=== PATIENT | male | born 1950 | race Caucasian/White ===

== ENCOUNTER 2020-09-04 12:17 | Inpatient (IN) | payer MEDICARE, SELFPAY ==
[2020-09-04] VITALS (13 sets, daily range): BP systolic 122–143; BP diastolic 79–94; PULSE 69–88; RESP 18–24; TEMP 35.9–36.7; O2SAT 92–99; BMI 27.6
--- NOTE | ~2020-09-04 | XR_ITS ---
EXAMINATION: XR chest 2V EXAM DATE: 09/04/2020 12:48 INDICATION: Chest pain. History of heart stents. TECHNIQUE: Frontal and lateral projections of the chest obtained and reviewed. Comparison is made to prior examination from 07/09/2017. FINDINGS: Right coronary artery stent identified. Possible left-sided coronary stent as well. Cardio mediastinal silhouette is normal. No confluent consolidation, pneumothorax or pleural effusion suspec emil. Cervical fusion hardware. IMPRESSION: 1. No acute cardiopulmonary findings. Reviewed, dictated and finalized at location B.
--- NOTE | 2020-09-04 12:23 | ECG_ITS ---
Measurements Intervals [place] Rate: 90 P: 64 WV: 152 QRS: 69 QRSD: 100 T: 63 QT: 347 QTc: 426 Interpretive Statements SINUS RHYTHM DELAYED PRECORDIAL R/S TRANSITION NONSPECIFIC T-WAVE ABNORMALITY- INF/HIGH LAT LEADS BASELINE WANDER- V4 BORDERLINE ECG Electronically Signed On 09-04-2020 12:31:51 CDT by Uriel Cardona D.O.
[2020-09-04] MEDS: ASPIRIN 81 MG CHEWABLE TABLET 324 MG PO (12:37)
--- NOTE | 2020-09-04 12:39 | ED.CHESTPAIN ---
HPI - Chest Pain General Chief Complaint: Chest Pain Stated Complaint: cp Time Seen by Provider: 09/04/20 12:39 History of Present Illness HPI narrative: 70 yo male w/ h/o CAD s/p stent x 7 presents to the ED for chest pain. He reports that he has been having chest pain nearly every day for weeks. The pain is moderate pressure. It is associated with mild dyspnea. This is the same pain he had prior to getting stented in the past. It usually resolves with Nitroglycerine. He is scheduled for a cardiac cath on the , but his symptoms have become more frequent and he does not believe that he can wait. He currently has no pain. Related Data Home Medications Medication Instructions Recorded Confirmed aspirin [Adult Aspirin] 81 mg PO DAILY 09/04/20 09/04/20 atorvastatin 40 mg PO DAILY 09/04/20 09/04/20 bupropion HCl 150 mg PO DAILY 09/04/20 09/04/20 carvedilol 3.125 mg PO DAILY 09/04/20 09/04/20 escitalopram oxalate 20 mg PO DAILY 09/04/20 09/04/20 famotidine 40 mg PO DAILY 09/04/20 09/04/20 insulin degludec [Tresiba 200 unit SUBCUT DAILY 09/04/20 09/04/20 FlexTouch U-200] losartan 50 mg PO DAILY 09/04/20 09/04/20 metformin 1,000 mg PO DAILY 09/04/20 09/04/20 semaglutide [Ozempic] 0.25 mg SUBCUT 09/04/20 Allergies Allergy/AdvReac Type Severity Reaction Status Date / Time No Known Allergies Allergy Verified 09/04/20 12:29 Review of Systems Review of Systems: All systems reviewed & are unremarkable except as noted in HPI and below Constitutional: Constitutional: Denies chills, Denies fever(s) and Denies weakness Eyes: Eyes: Reports no additional eye complaints ENT: Reports system reviewed and no additional complaints, except as documented Cardiovascular: Cardiovascular: Reports chest pain and Reports radiating jaw, neck or arm pain Respiratory: Respiratory: Denies chest congestion, Denies cough and Reports dyspnea Gastrointestinal: Gastrointestinal: Denies abdominal pain, Denies nausea and Denies vomiting Genitourinary: Genitourinary: Reports no additional male genitourinary complaints Musculoskeletal: Musculoskeletal: Denies back pain Neurologic: Denies dizziness and Denies weakness [facility] Past Medical History Medical History (Updated 09/04/20 @ 13:59 by Nathan Preciado MD) CAD (coronary artery disease) Diabetes mellitus Surgical History Surgical History (Updated 09/04/20 @ 13:11 by Nathan Preciado MD) Stented coronary artery Family History Family History (Updated 04/01/15 @ 15:39 by DOCTOR UNKNOWN) Mother Family history of lung cancer Acute myocardial infarction Father Acute myocardial infarction Social History Social History Smoking status: Never smoker Alcohol intake: never Gender identity (if verbalized by the patient): Male Exam Const: General: healthy appearing, no acute distress and alert Orientation/consciousness: patient oriented x3 HENMT: Head: normal to inspection Neck: Neck: normal visual inspection and no lymphadenopathy Chest: Chest palpation & inspection: no tenderness Resp: Effort & Inspection: normal respiratory effort Auscultation: clear to auscultation bilaterally, no rales, no rhonchi and no wheezes Cardio: Jugular venous distension: no JVD Rate: regular rate Rhythm: regular rhythm Heart sounds: no murmurs GI: Inspection: non-distended GI Palp: Yes Soft to palpation and No Tenderness to palpation present (GI) Skin: General skin exam: normal color Neuro: General: patient oriented x3, moves all extremities, no focal motor deficits and CN's II-XI intact bilaterally Speech: normal speech Extrem: General: no edema Psych: Appearance: well kempt Affect: normal affect Course Vital Signs Vital signs: Vital Signs Temperature 36.7 C 09/04/20 12:20 Pulse Rate 88 09/04/20 12:20 Respiratory Rate 21 H 09/04/20 12:20 Blood Pressure 138/79 09/04/20 12:20 Pulse Oximetry 99 09/04/20 12:20 Temperature 36.7 C 05/0
[2020-09-04 12:44] LABS: Basophils Absolute Auto 0.1 K/mm3 (0.0-0.1); Basophils Percent Auto 0.5 % (0.2-1.2); Eosinophils Absolute Auto 0.7 K/mm3 (0-0.3); Eosinophils Percent Auto 5.7 % (0-4.4); Hematocrit 52.2 % (42.0-52.0); Hemoglobin 17.6 g/dL (14.0-18.0); Immature Granulocyte Absolute 0.08 K/mm3 (0.00-0.031); Immature Granulocyte Percent A 0.7 % (0-0.5); Lymphocytes Absolute Auto 3.49 K/mm3 (0.9-3.2); Lymphocytes Percent Auto 30.7 % (18.3-44.2); Mean Corpuscular HGB Conc 33.7 g/dl (32-36); Mean Corpuscular Hemoglobin 31.3 pg (26-34); Mean Corpuscular Volume 92.9 fl (80-100); Mean Platelet Volume 9.5 fl (7.4-10.4); Monocytes Absolute Auto 0.9 K/mm3 (0.1-0.6); Monocytes Percent Auto 8.2 % (2.6-8.5); Neutrophils Absolute Auto 6.1 K/mm3 (1.3-6.7); Neutrophils Percent Auto 54.2 % (45.5-73.1); Platelet Count Result 212 k/mm3 (150-375); Red Blood Count 5.62 M/mm3 (4.6-6.20); Red Cell Distribution Width 14.1 % (11.5-14.5); White Blood Count 11.4 K/mm3 (4.5-10.0)
[2020-09-04 12:49] LABS: Anion Gap 6 mmol/L (8-16); Blood Urea Nitrogen 14 mg/dL (9-20); Carbon Dioxide 34 mmol/L (22-30); Chloride 100 mmol/L (98-107); Estimated CRCL calculation 53 ml/min; Estimated Glomerular Filt Rate 60; Glucose 200 mg/dL (75-110); Potassium 4.7 mmol/L (3.4-5.0); Sodium 140 mmol/L (137-145)
[2020-09-04 12:55] LABS: INR 0.9; Partial Thromboplastin Time 24.9 SECONDS (22.3-36.8); Prothrombin Time 12.4 Seconds (11.1-14.7)
[2020-09-04 13:02] LABS: Troponin I 0.147 ng/mL (0.000-0.034)
[2020-09-04 15:33] LABS: Troponin I 0.154 ng/mL (0.000-0.034)
--- NOTE | 2020-09-04 15:42 | ADMGEN ---
This patient, Los Barlow, was admitted to IMU Room 214-01. Patient/family oriented to hospital policies and general routines including ID bracelet, bed and alarms, visiting hours, pain management, procedures, bathroom and other care routines, personal items, smoking policy, room service/diet, and visiting hours. Information on how to activate the Rapid Response Team has been discussed. Patient/Family are encouraged to report perceived risks to care and to ask questions if they do not understand what they are told or what they should do.
[2020-09-04 17:21] LABS: Glucose Point of Care 153 (65-105)
[2020-09-04] MEDS: HEPARIN SOD/D5W 100 UNITS/ML 25,000 UNITS/250 ML BAG 10 UNITS IV CONT (18:22)
[2020-09-04] MEDS: HEPARIN SODIUM 5,000 UNITS/ML VIAL 4000 UNITS IV PUSH (18:22)
--- NOTE | 2020-09-04 18:22 | PM.CNCAR ---
Assessment and Plan Assessment and plan (1) ACS (acute coronary syndrome): Code(s): I24.9 - Acute ischemic heart disease, unspecified Status: Acute Assessment and Plan: Onset of the patient's typical symptoms 3 weeks ago, progressive requiring multiple nitroglycerins during the day. Troponins are mildly elevated, but fortunately EKG does not show any acute ischemic changes. Discussed cardiac catheterization with the patient who is eager to proceed. In the meantime will continue aspirin and add heparin drip. (2) CAD (coronary artery disease): Code(s): I25.10 - Atherosclerotic heart disease of [place] coronary artery without angina pectoris Status: Acute Assessment and Plan: Long history of CAD with multiple PCIs in the past. (3) Hyperlipidemia: Code(s): E78.5 - Hyperlipidemia, unspecified Status: Acute Assessment and Plan: Taking atorvastatin 40 mg daily. Check lipids (4) Diabetes: Code(s): E11.9 - Type 2 diabetes mellitus without complications Status: Acute Assessment and Plan: Patient reports well controlled (5) Tobacco use: Code(s): Z72.0 - Tobacco use Status: Acute Assessment and Plan: Tobacco cessation strongly encouraged History of Present Illness History of Present Illness Consult date/time: 09/04/20 18:22 Consult reason: chest pain Reason For Visit: acute coronary syndrome Narrative: Mr. Los Barlow is a 68-year-old white male who was admitted with unstable angina whom we were asked to see by the hospitalist for advice and opinion. Mr. Barlow has had a long history of coronary disease with multiple coronary interventions dating back to 1992. He had not followed up with Dr. Schuster for several years but started having his typical symptoms about 3 weeks ago and was seen on 09/02/2020 with a cardiac catheterization scheduled for next week. However, he started having episodes of discomfort 5 to 6 times a day, relieved by nitroglycerin and 5/10 minutes, and thought he should just come in and get the catheterization done before things get any worse. His typical symptom is aching and soreness of the left shoulder; he told doctors Landen he was having some pressure-type chest discomfort but he denied any with me. This can occur at rest. He has been pain-free since admission. He does have an elevated troponin. The patient reports his blood pressure and diabetes are doing well as are his lipids. He smokes half a pack a day. 1993: Angioplasty of the mid Left anterior descending 12/1998: Stenting of the RCA ostium, OM2, and Left anterior descending 01/1999: stenting of the Left anterior descending and 2nd diagonal 10/1999: Rotational arthrectomy and stenting of the RCA ostium 01/2012: Angioplasty and stenting of the RCA from the ostium to the mid portion Review of Systems Constitutional: Constitutional: Reports no additional constitutional complaints Eyes: Eyes: Reports no additional eye complaints ENT: Denies epistaxis Cardiovascular: Cardiovascular: Reports chest pain, Denies diaphoresis, Denies pedal edema, Denies leg edema, Denies lightheadedness and Denies palpitations Respiratory: Respiratory: Denies dyspnea, Denies dyspnea on exertion and Reports wheezing Comments: Compliant with CPAP Gastrointestinal: Gastrointestinal: Denies abdominal pain and Denies hematochezia Genitourinary: Genitourinary: Denies dysuria Musculoskeletal: Musculoskeletal: Denies back pain Integumentary/Breasts: Skin/Breast: Reports rash (Rash on arms and legs, seen by Dermatology, topical steroids recommended) Neurologic: Reports system reviewed and no additional complaints, ex
[2020-09-04 19:08] LABS: Troponin I 0.161 ng/mL (0.000-0.034)
[2020-09-04 19:48] LABS: Glucose Point of Care 161 (65-105)
--- NOTE | 2020-09-04 20:02 | PM.IMHP ---
H&P: HPI History of Present Illness Date/Time: 09/04/20 20:02 this is a 70-year-old male patient who has a longstanding history of coronary artery disease. The patient has a total of 7 stents. He has been following the heart care group. The patient recently was seen by the Heart Care group on 09/02/2020. The patient had been having some chest pain on and off for many weeks. It was nitro responsive. Sometimes the patient takes up to 2-3 tablets of nitro a day. The patient stated he has been having chest pain every day with and without exertion. The patient did have a cardiac catheterization scheduled for next week. Per Dr. Neri 1992: Angioplasty of the mid Left anterior descending 12/1998: Stenting of the RCA ostium, OM2, and Left anterior descending 01/1999: stenting of the Left anterior descending and 2nd diagonal 10/1999: Rotational arthrectomy and stenting of the RCA ostium 01/2012: Angioplasty and stenting of the RCA from the ostium to the mid portion The patient currently is on heparin drip and is not having any chest discomfort at this time. He was also given aspirin in the emergency room. Of troponin 0.147. 3 hour troponin 0.154. 6 hour troponin 0.161. EKG was read by Dr. henao SINUS RHYTHM DELAYED PRECORDIAL R/S TRANSITION NONSPECIFIC T-WAVE ABNORMALITY- INF/HIGH LAT LEADS BASELINE WANDER- V4 BORDERLINE ECG Dr. pyle has been consulted and has already seen the patient. The plan is for cardiac catheterization for tomorrow. The patient is being admitted for inpatient services on the date of service 09/04/2020. Chief Complaint: Chest pain Review of Systems Review of Systems: All systems reviewed & are unremarkable except as noted in HPI and below Constitutional: Constitutional: Reports as per HPI and Reports no additional constitutional complaints Eyes: Eyes: Reports as per HPI and Reports no additional eye complaints ENT: Reports system reviewed and no additional complaints, except as documented and Reports Normal hearing present Cardiovascular: Cardiovascular: Reports no additional cardiovascular complaints Respiratory: Respiratory: Reports no additional respiratory complaints and Reports no additional respiratory complaints Gastrointestinal: Gastrointestinal: Reports as per HPI and Reports no additional gastrointestinal complaints Musculoskeletal: Musculoskeletal: Reports no additional musculoskeletal complaints Integumentary/Breasts: Skin/Breast: Reports system reviewed and no additional complaints, except as docu and Reports as per HPI Neurologic: Reports system reviewed and no additional complaints, except as documented, Reports as per HPI and Reports Normal hearing present Psychiatric: Psychiatric: Reports no additional psychiatric complaints and Reports as per HPI Endocrine: Endocrine: Reports no additional endocrine complaints Hematologic/Lymphatic: Hematologic/Lymphatic: Reports no additional hematologic/lymphatic complaints Allergic/Immunologic: Allergic/Immunologic: Reports no additional allergic/immunologic complaints [facility] Past Medical History Medical History CAD (coronary artery disease) 1992: Angioplasty of the mid Left anterior descending 12/1998: Stenting of the RCA ostium, OM2, and Left anterior descending 01/1999: stenting of the Left anterior descending and 2nd diagonal 10/1999: Rotational arthrectomy and stenting of the RCA ostium 01/2012: Angioplasty and stenting of the RCA from the ostium to the mid portion 08/2020: Depression Diabetes mellitus Eczema Bilateral arms SANJU (obstructive sleep apnea) Tobacco use Surgical History Surgical History (Updated 09/04/20 @ 20:17 by Marva Buchanan NP) H/O hernia repair Hx of cholecystectomy Stented coronary artery 1992: Angioplasty of the mid Left anterior descending 12/1998: Stenting of the RCA ostium, OM2, and Left anterior descending 01/1999: stenting of the Left anterior descending and 2nd diagonal 10/1999: Rotationa
[2020-09-04] MEDS: carvediloL 3.125 MG TABLET PO (21:03)
[2020-09-05] VITALS (31 sets, daily range): BP systolic 98–158; BP diastolic 65–88; PULSE 59–93; RESP 14–24; TEMP 35.6–36.6; O2SAT 90–98
[2020-09-05 01:00] LABS: Partial Thromboplastin Time 49.7 SECONDS (22.3-36.8)
[2020-09-05] MEDS: HEPARIN SODIUM 5,000 UNITS/ML VIAL 4000 UNITS IV PUSH (01:49)
[2020-09-05] MEDS: ESCITALOPRAM OXALATE 10 MG TABLET 20 MG PO (07:46)
[2020-09-05] MEDS: FAMOTIDINE 20 MG TABLET 40 MG PO (07:47)
[2020-09-05] MEDS: ATORVASTATIN 40 MG TABLET PO (07:47)
[2020-09-05] MEDS: LOSARTAN POTASSIUM 50 MG TABLET PO (07:47)
[2020-09-05] MEDS: buPROPion HCL XL (24 HR) 150 MG TABCR PO (07:47)
[2020-09-05] MEDS: carvediloL 3.125 MG TABLET PO ×2 (07:48→22:50)
[2020-09-05 08:12] LABS: Basophils Absolute Auto 0.1 K/mm3 (0.0-0.1); Basophils Percent Auto 0.5 % (0.2-1.2); Eosinophils Absolute Auto 0.5 K/mm3 (0-0.3); Eosinophils Percent Auto 4.5 % (0-4.4); Hematocrit 49.8 % (42.0-52.0); Immature Granulocyte Absolute 0.05 K/mm3 (0.00-0.031); Immature Granulocyte Percent A 0.4 % (0-0.5); Mean Corpuscular HGB Conc 34.1 g/dl (32-36); Mean Corpuscular Volume 90.7 fl (80-100); Mean Platelet Volume 9.4 fl (7.4-10.4); Monocytes Absolute Auto 0.9 K/mm3 (0.1-0.6); Monocytes Percent Auto 7.8 % (2.6-8.5); Neutrophils Absolute Auto 6.4 K/mm3 (1.3-6.7); Neutrophils Percent Auto 53.8 % (45.5-73.1); Platelet Count Result 184 k/mm3 (150-375); Red Blood Count 5.49 M/mm3 (4.6-6.20); White Blood Count 11.8 K/mm3 (4.5-10.0)
[2020-09-05 08:39] LABS: Alanine Aminotransferase 39 U/L (4-50); Albumin Level 4.2 g/dL (3.5-5.1); Alkaline Phosphatase 79 U/L (38-126); Anion Gap 5 mmol/L (8-16); Aspartate Amino Transferase 36 U/L (17-59); Bilirubin,Total 0.4 mg/dL (0.2-1.3); Blood Urea Nitrogen 15 mg/dL (9-20); Calcium 9.3 mg/dL (8.4-10.2); Carbon Dioxide 32 mmol/L (22-30); Chloride 103 mmol/L (98-107); Cholesterol 142 mg/dL (0-200); Estimated CRCL calculation 57 ml/min; Estimated Glomerular Filt Rate > 60; Glucose 111 mg/dL (75-110); HDL Direct 37 mg/dL; Potassium 4.3 mmol/L (3.4-5.0); Sodium 140 mmol/L (137-145); Triglycerides 174 mg/dL (<150)
[2020-09-05 08:41] LABS: Hemoglobin A1C 8.3 % (<5.7)
[2020-09-05 08:41] LABS: Glucose Point of Care 105 (65-105)
--- NOTE | 2020-09-05 08:41 | WPDMODSED ---
Moderate Sedation Note-Pt Data Patient Data Diagnosis: Symptoms compatible with exertional angina recent onset history of coronary disease with multiple interventions in all of the coronary arteries previously, none recent Present Complaint: exertional chest pain Procedure to be performed/Plan: left heart catheterization Allergies Allergy/AdvReac Type Severity Reaction Status Date / Time No Known Allergies Allergy Verified 09/04/20 12:29 Home Medications Medication Instructions Recorded Confirmed Type aspirin [Adult Aspirin] 81 mg PO DAILY 09/04/20 09/04/20 History atorvastatin 40 mg PO DAILY 09/04/20 09/04/20 History bupropion HCl 150 mg PO DAILY 09/04/20 09/04/20 History carvedilol 3.125 mg PO BID 09/04/20 09/04/20 History escitalopram oxalate 20 mg PO DAILY 09/04/20 09/04/20 History famotidine 40 mg PO DAILY 09/04/20 09/04/20 History insulin degludec [Tresiba 200 unit SUBCUT DAILY 09/04/20 09/04/20 History FlexTouch U-200] losartan 50 mg PO DAILY 09/04/20 09/04/20 History metformin 1,000 mg PO DAILY 09/04/20 09/04/20 History semaglutide [Ozempic] 0.5 mg SUBCUT WEEKLY 09/04/20 09/04/20 History Current Medications: Active Medications Atorvastatin Calcium (Atorvastatin 40 Mg Tablet) 40 mg PO DAILY [facility] Last Admin: 09/05/20 07:47 Dose: 40 mg Documented by: Bupropion HCl (Bupropion Hcl Xl (24 Hr) 150 Mg Tabcr) 150 mg PO DAILY [facility] Last Admin: 09/05/20 07:47 Dose: 150 mg Documented by: Carvedilol (Carvedilol 3.125 Mg Tablet) 3.125 mg PO Q12HR [facility] Last Admin: 09/05/20 07:48 Dose: 3.125 mg Documented by: Dextrose (Dextrose 50% 25 Gm/50 Ml Syringe) 12.5 gm IV PUSH PRN PRN; Protocol PRN Reason: Hypoglycemia Escitalopram Oxalate (Escitalopram Oxalate 10 Mg Tablet) 20 mg PO DAILY [facility] Last Admin: 09/05/20 07:46 Dose: 20 mg Documented by: Famotidine (Famotidine 20 Mg Tablet) 40 mg PO DAILY [facility] Last Admin: 09/05/20 07:47 Dose: 40 mg Documented by: Glucagon (Glucagon For Inj 1 Mg Vial) 1 mg IM PRN PRN; Protocol PRN Reason: Hypoglycemia Glucose (Glucose Oral Gel 15 Gm Of Glucse In 37.5 Gm Tube) 15 gm PO PRN PRN; Protocol PRN Reason: Hypoglycemia Heparin Sodium (Porcine) (Heparin Sodium 5,000 Units/Ml Vial) 4,000 units IV PUSH PRN PRN PRN Reason: aPTT less than 55 seconds Last Admin: 09/05/20 01:49 Dose: 4,000 units Documented by: Heparin Sodium (Porcine) (Heparin Sodium 5,000 Units/Ml Vial) 3,500 units IV PUSH PRN PRN PRN Reason: aPTT 55 - 70 seconds Heparin Sodium/Dextrose (Heparin Sodium/D5w 100 Units/Ml) 25,000 units in 250 mls @ 14 mls/hr IV CONT .[id number] [facility]; Protocol Last Titration: 09/05/20 08:30 Dose: 1,400 units/hr, 14 mls/hr Documented by: Sodium Chloride (Normal Saline Iv) 500 mls @ 100 mls/hr IV CONT .Q5H ELIEZER Dextrose (Dextrose 5% 1,000 Ml) 1,000 mls @ 100 mls/hr IVPB PRN PRN; Protocol PRN Reason: Hypoglycemia Insulin Aspart (Insulin Aspart (*Bkc) 100 Units/Ml) 2 - 5 units SUB-Q TIDWM [facility]; Protocol Last Admin: 09/05/20 07:23 Dose: Not Given Documented by: Losartan Potassium (Losartan Potassium 50 Mg Tablet) 50 mg PO DAILY [facility] Last Admin: 09/05/20 07:47 Dose: 50 mg Documented by: Nitroglycerin (Nitroglycerin Sl 0.4 Mg Tablet) 0.4 mg SUBLINGUAL Q5MIN PRN PRN Reason: Chest Pain Nitroglycerin (Nitroglycerin Sl 0.4 Mg Tablet) 0.4 mg SUBLINGUAL ONCE PRN PRN Reason: Chest Pain Ondansetron HCl (Ondansetron Inj 4 Mg/2 Ml Vial) 4 mg IV PUSH Q4H PRN PRN Reason: Nausea Sedation/Anesthesia: No previous sedation/anesthesia problems (including family history). [facility] Past Medical History Medical History CAD (coronary artery disease) 1993: Angioplasty of the mid Left anterior descending 12/1998: Stenting of the RCA ostium, OM2, and Left anterior descending 01/1999: stenting of the Left anterior descending and 2nd diagonal 10/1999: Rotational arthrectomy and stenting of the RCA ostium 01/2012: Angioplasty and stenting of the RCA from the ostium to the mid portion
[2020-09-05 08:50] LABS: LDL Cholesterol Direct 75 mg/dL
--- NOTE | 2020-09-05 09:26 | WPDCARDPROC ---
Cardiac Cath Procedure Note Date of procedure:: 09/05/20 Performing physician:: Sotero Schuster MD Indication:: recurrent exertional angina Brief clinical history:: 70-year-old man known to have multivessel coronary disease with interventions in all of his coronary arteries dating back to 1992 Procedure Procedure performed:: left heart catheterization Sedation/Medication given:: fentanyl 50 mg Versed 2 mg case start time 8:55 a.m. case end time 9:19 a.m. sedation provided by Dottie Baumann RN, trained observer Access site:: right femoral artery Estimated blood loss:: 15-20 cc Procedure note:: patient was brought to the cardiac catheterization lab in the postabsorptive state where the right femoral triangle was prepared and draped in the usual fashion. Anesthesia was provided with 1% lidocaine infiltrated locally. Using the modified Seldinger technique femoral artery was punctured and a 5 [place] vascular sheath was placed. The sheath guidewire would not advance into the abdominal aorta there was atherosclerotic lesion with some calcification in the iliac vessel. For this reason I placed a [place] wire into the vessel and at access the descending aorta that over the wooly wire the sheath was exchanged for a long 5 Malaysian 23 cm sheath. Following this a 5 Malaysian angled pigtail catheter was used to measure left-sided hemodynamics and injected LV g in the SÁNCHEZ projection. A 5 [place] FL4 catheter was used to engage inject the left coronary artery. The I could not satisfactorily engage the right coronary ostium using the JR4 catheter I used a WRP 5 Malaysian catheter for this. Following this the cineangiograms were reviewed and the case was terminated. The sheath will be removed in the holding area and patient will be recovered following angiography. He left the dental laboratory worker with no evidence of any procedural complications and no evidence of a groin hematoma. Findings:: Hemodynamics: Central pressure 134 over 70 left ventricle 1343 and diastolic pressure 22 there is no gradient pullback across the aortic valve. Ventricle: The LV is mildly enlarged the inferior wall is akinetic the anterior wall is mildly hypodynamic the global ejection fraction visually estimated to be about 45%. Left main coronary artery is nicely patent the left anterior descending is a medium caliber artery extending down to around the apex. There are several previous stents in the proximal to mid LAD. In the mid LAD and there appeared to be at least 2 layers of prior stent material. In this segment there is 80% stenosis relatively long tubular lesion in the mid LAD. A 2nd diagonal takes off in this location has a subtotal proximal occlusion which is jailed by these layers of stent material. There is collateral filling from the apical portion of the LAD over to a distal RCA vessel. Circumflex is a medium caliber artery with mild ostial disease and mild ostial disease of 1st OM branch appears to have no more than about 40-50% stenosis in this segment. There was ROSANNE 3 flow into the 1st OM branch and there is a visible stent prior to a 2nd OM branch at the terminal margin of the stent the vessel is 99% occluded with very slow flow into the 2nd OM branch which appears to be a very small vessel. Right coronary artery is dominant to the posterior circulation. There are at least 2 layers of proximal stent material visible as well as another layer of stent trivial in the midportion of the vessel. The proximal segment has a long severe 99% stenosis in the 1st portion of the vessel. There is 80-90% stenosis in the midportion of the vessel. The RCA appears to bifurcate early between the 2nd and 3rd portions of the vessel the RPDA takes off in a stented area appears to have reasonably good flow but is originating in an area that is jailed. RPL branches are several and are small to medium in size and free of significant lesions. Conclusion:: 1. Severe three-vessel
[2020-09-05] MEDS: SODIUM CHLORIDE 0.9% IV 1,000 ML 125 ML IV CONT (10:20)
--- NOTE | 2020-09-05 10:20 | SUR.PHASEII ---
ACT RESULT 120. WILL PULL SHEATH.
--- NOTE | 2020-09-05 12:00 | SUR.PHASEII ---
REPORT CALLED TO REX CONCEPCION IN IMU.
--- NOTE | 2020-09-05 12:30 | SUR.PHASEII ---
RETURNED TO IMU 214 VIA BED ON TELE MONITOR AT THIS TIME. VOICES NO C/O. R. GROIN SITE SOFT, NONTENDER. NO BLEEDING OR HEMATOMA NOTED. DRESSING C/D/I. VOICES NO C/O. NO DISTRESS NOTED. IVF'S RUNNING ORDERED.
[2020-09-05 13:08] LABS: Glucose Point of Care 96 (65-105)
[2020-09-05 13:30] LABS: Activated Clotting Time 120 sec (74-137)
--- NOTE | 2020-09-05 13:33 | PM.DS ---
DS: Admitting Diagnosis Admitting Diagnosis Admitting Diagnosis: (1) ACS (acute coronary syndrome): Code(s): I24.9 - Acute ischemic heart disease, unspecified Status: Acute Assessment and Plan: (2) Diabetes: Code(s): E11.9 - Type 2 diabetes mellitus without complications Status: Acute Assessment and Plan: Accu-Cheks AC and HS with sliding scale. Hold metformin since he is going to get a cardiac catheterization. (3) Hyperlipidemia: Code(s): E78.5 - Hyperlipidemia, unspecified Status: Acute Assessment and Plan: Continue with atorvastatin. (4) Tobacco use: Code(s): Z72.0 - Tobacco use Status: Acute Assessment and Plan: Patient has been counseled approximately 5 minutes on smoking cessation and he did receive smoking cessation material. (5) Depression: Code(s): F32.9 - Major depressive disorder, single episode, unspecified Status: Chronic Assessment and Plan: Continue with Wellbutrin and Lexapro. DS: Discharge Diagnosis Discharge Diagnosis (1) Tobacco use: Code(s): Z72.0 - Tobacco use Status: Acute (2) Hyperlipidemia: Code(s): E78.5 - Hyperlipidemia, unspecified Status: Acute (3) Diabetes: Code(s): E11.9 - Type 2 diabetes mellitus without complications Status: Acute (4) CAD (coronary artery disease): Code(s): I25.10 - Atherosclerotic heart disease of [place] coronary artery without angina pectoris Status: Acute (5) ACS (acute coronary syndrome): Code(s): I24.9 - Acute ischemic heart disease, unspecified Status: Acute (6) Coronary artery disease with cardiac symptoms and history of coronary revascularization: Code(s): I25.10 - Atherosclerotic heart disease of [place] coronary artery without angina pectoris; R09.89 - Other specified symptoms and signs involving the circulatory and respiratory systems; Z98.61 - Coronary angioplasty status Status: Acute (7) Depression: Code(s): F32.9 - Major depressive disorder, single episode, unspecified Status: Chronic (8) Eczema: Code(s): L30.9 - Dermatitis, unspecified Status: Chronic DS: Summary Hospital Course Reason for hospitalization: Chest pain Hospital Course: 70-year-old male diabetic smoker with history of [place] and PCI w multiple stents presents to the emergency room with worsening angina. patient was admitted and placed on heparin ip. Pain was controlled. He was taken to cardiac catheterization and found to have widespread multivessel disease not amenable to further percutaneous intervention. Recommendation was made for him to be transferred to [facility] for CABG. patient is discharged in stable condition Time spent discussing smoking cessation with patient: 3 to 10 minutes Status at Discharge Functional status at discharge: independent ambulation Time Spent with Patient Time attestation: Total time spent providing and/or coordinating discharge services: Time spent: Greater than 30 minutes Exam Narrative: Exam Narrative: GEN: NAD, AAOx3, cooperative HEENT: NCAT, MMM, EOMI Neck: no JVD Heart: S1S2 RRR Lungs: CTA B/l Abd: soft, NT, ND, bowel sounds normoactive Ext: moves all, no cyanosis, no clubbing, no edema, rt groin site soft without ecchymosis or abnormal findings Neuro: AAOx3 CN intact no gross focal deficits Psych: mood and affect congruent DS: Data Data Completed and Pending Labs on day of discharge: Labs from last 24 hours 09/05/20 09/05/20 09/05/20 12:44 10:18 08:05 WBC RBC Hgb Hct MCV MCH MCHC RDW Plt Count MPV Immature Gran % (Auto) Neut % (Auto) Lymph % (Auto) Cassia % (Auto) Eos % (Auto) Baso % (Auto) Lymph # (Auto) Cassia # (Auto) Eos # (Auto) Baso # (Auto) Abs Immat Gran (auto) Absolute Neuts (auto) Absolute Nucleated RBC Nucleated RBC % APTT 105.0 H Activ C
--- NOTE | 2020-09-05 14:12 | PM.TDS ---
Transfer Discharge Sum: Prov Provider Date of admission: 09/04/20 13:25 Primary care physician: Sergey Helms, DO Admitting clinician: Amanda Strickland MD Consults: 09/04/20 13:28 Consult to Physician Routine Comment: Consulting Provider: Belle Bermudez Reason for consultation: Acute coronary syndrome Has provider been notified: Yes DS: Admitting Diagnosis Admitting Diagnosis Admitting Diagnosis: Admitting Diagnosis: (1) ACS (acute coronary syndrome): Code(s): I24.9 - Acute ischemic heart disease, unspecified Status: Acute Assessment and Plan: (2) Diabetes: Code(s): E11.9 - Type 2 diabetes mellitus without complications Status: Acute Assessment and Plan: Accu-Cheks AC and HS with sliding scale. Hold metformin since he is going to get a cardiac catheterization. (3) Hyperlipidemia: Code(s): E78.5 - Hyperlipidemia, unspecified Status: Acute Assessment and Plan: Continue with atorvastatin. (4) Tobacco use: Code(s): Z72.0 - Tobacco use Status: Acute Assessment and Plan: Patient has been counseled approximately 5 minutes on smoking cessation and he did receive smoking cessation material. (5) Depression: Code(s): F32.9 - Major depressive disorder, single episode, unspecified Status: Chronic Assessment and Plan: Continue with Wellbutrin and Lexapro. DS: Discharge Diagnosis Discharge Diagnosis (1) Coronary artery disease with cardiac symptoms and history of coronary revascularization: Code(s): I25.10 - Atherosclerotic heart disease of [place] coronary artery without angina pectoris; R09.89 - Other specified symptoms and signs involving the circulatory and respiratory systems; Z98.61 - Coronary angioplasty status Status: Acute (2) Depression: Code(s): F32.9 - Major depressive disorder, single episode, unspecified Status: Chronic (3) Eczema: Code(s): L30.9 - Dermatitis, unspecified Status: Chronic (4) Tobacco use: Code(s): Z72.0 - Tobacco use Status: Acute (5) Hyperlipidemia: Code(s): E78.5 - Hyperlipidemia, unspecified Status: Acute (6) Diabetes: Code(s): E11.9 - Type 2 diabetes mellitus without complications Status: Acute (7) CAD (coronary artery disease): Code(s): I25.10 - Atherosclerotic heart disease of [place] coronary artery without angina pectoris Status: Acute (8) ACS (acute coronary syndrome): Code(s): I24.9 - Acute ischemic heart disease, unspecified Status: Acute Transfer Discharge Sum: Med Medications Active and Home Medications: Home Medications aspirin [Adult Aspirin] 81 mg PO DAILY 09/04/20 [History Confirmed 09/04/20] atorvastatin 40 mg PO DAILY 09/04/20 [History Confirmed 09/04/20] bupropion HCl 150 mg PO DAILY 09/04/20 [History Confirmed 09/04/20] carvedilol 3.125 mg PO BID 09/04/20 [History Confirmed 09/04/20] escitalopram oxalate 20 mg PO DAILY 09/04/20 [History Confirmed 09/04/20] famotidine 40 mg PO DAILY 09/04/20 [History Confirmed 09/04/20] insulin degludec [Tresiba FlexTouch U-200] 200 unit SUBCUT DAILY 09/04/20 [History Confirmed 09/04/20] losartan 50 mg PO DAILY 09/04/20 [History Confirmed 09/04/20] metformin 1,000 mg PO DAILY 09/04/20 [History Confirmed 09/04/20] semaglutide [Ozempic] 0.5 mg SUBCUT WEEKLY 09/04/20 [History Confirmed 09/04/20] Active Medications Atorvastatin Calcium (Atorvastatin 40 Mg Tablet) 40 mg PO DAILY [facility] Last Admin: 09/05/20 07:47 Dose: 40 mg Documented by: Bupropion HCl (Bupropion Hcl Xl (24 Hr) 150 Mg Tabcr) 150 mg PO DAILY [facility] Last Admin: 09/05/20 07:47 Dose: 150 mg Documented by: Carvedilol (Carvedilol 3.125 Mg Tablet) 3.125 mg PO Q12HR [facility] Last Admin: 09/05/20 07:48 Dose: 3.125 mg Documented by: Dextrose (Dextrose 50% 25 Gm/50 Ml Syringe) 12.5 gm IV PUSH PRN PRN; Protocol PRN Reason: Hypoglycemia Escitalopram Oxalate (Escitalo
--- NOTE | 2020-09-05 14:28 | PCCPR ---
[facility] flyer was given to patient.
[2020-09-05 18:00] LABS: Glucose Point of Care 180 (65-105)
--- NOTE | 2020-09-05 19:20 | PC.NURSE ---
Dr. Strickland notified that patient stated he did not want to be intubated. (DNI) Dr. Strickland verbalized that since the patient is being transferred to [facility] that code status will remain the same at this time. No further orders.
--- NOTE | 2020-09-05 19:39 | PC.NURSE ---
Call placed out to Dr. Strickland @[phone] to sign transfer document or give verbal order via phone. No answer. Awaiting call back.
[2020-09-05 21:35] LABS: Glucose Point of Care 193 (65-105)
[2020-09-06] VITALS: BP 113/59; PULSE 62; PULSE 67; RESP 16; TEMP 36.2; O2SAT 94
[2020-09-06 01:00] VITALS: PULSE 61
== END 2020-09-06 02:41 | disposition short-term general hospital (02) | DRG 287 ==
LOC: ANHED 13:59 → ANHIMU 14:30
PROVIDERS: Internal Medicine Cardiovascular Disease; Nurse Practitioner; Specialist; Admitting Provider Hospitalist; Emergency Provider Emergency Medicine; PCP Student in an Organized Health Care Education/Training Program; Visit Provider Hospitalist
PROC: 4A023N7 Measurement of Cardiac Sampling and Pressure, Left Heart, Percutaneous Approach (ICD-10-PCS; CPT 93452; principal; 2020-09-05 08:30)
DX: I25.119 Atherosclerotic heart disease of native coronary artery with unspecified angina pectoris (principal); I24.9 Acute ischemic heart disease, unspecified; F32.9 Major depressive disorder, single episode, unspecified; L30.9 Dermatitis, unspecified; F17.210 Nicotine dependence, cigarettes, uncomplicated; E78.5 Hyperlipidemia, unspecified; E11.9 Type 2 diabetes mellitus without complications; G47.33 Obstructive sleep apnea (adult) (pediatric); Z95.5 Presence of coronary angioplasty implant and graft; Z79.4 Long term (current) use of insulin; Z79.82 Long term (current) use of aspirin; Z79.899 Other long term (current) drug therapy
CPT/HCPCS: 36415; 71046; 80048; 80053; 80061; 82948; 83036; 84484; 85025; 85610; 85730; 93005; 93458; 99285; A9270; C1769; C1887; C1894; J0461; J1644; J2250; J3010; J7030; J7040

== ENCOUNTER 2022-07-27 09:37 | Outpatient (CLI) | payer MEDICARE, SELFPAY ==
--- NOTE | ~2022-07-27 | CT_ITS ---
CT Scan of the Chest without Contrast: Clinical Indication: Current smoker, lung cancer screening Technique: Contiguous sections were acquired throughout the chest without intravenous contrast. Dose reduction technique was used on this scan by utilizing automated exposure control and iterative recon struction technique. The dose-length product (DLP) was 142.93 mGy-cm. COMPARISON: 08/10/2018 Findings: There is no evidence of any significant mediastinal, hilar or axillary lymphadenopathy. There are ath erosclerotic calcifications of the aorta. Evidence of prior presumed CABG. There is no evidence of pleural or pericardial effusion. There is moderate emphysema. Several scattered subcentimeter pulmonary nodules are essentially stable from prior exam. Images through the upper abdomen reveal no abnormalities. Impression: Lung-RADS 2: Benign appearance. 12 month follow-up screening CT advised. Reviewed, dictated and finalized at [facility]. Impression: Lung-RADS 2: Benign appearance. 12 month follow-up screening CT advised.
== END 2022-07-27 09:38 | disposition home or self-care (01) ==
PROVIDERS: PCP Internal Medicine; Visit Provider Internal Medicine
DX: Z12.2 Encounter for screening for malignant neoplasm of respiratory organs (principal); F17.210 Nicotine dependence, cigarettes, uncomplicated
CPT/HCPCS: 71271

== ENCOUNTER 2022-08-05 01:13 | Day surgery (SDC) | payer MEDICARE, SELFPAY ==
[2022-07-23 10:09] VITALS: BMI 25.9
[2022-08-05 07:40] VITALS: BP 110/67; PULSE 92; RESP 18; TEMP 35.8; O2SAT 94; BMI 25.6
[2022-08-05] MEDS: LACTATED RINGERS 1,000 ML 150 ML IV CONT (07:58)
[2022-08-05 08:03] LABS: Glucose Point of Care 99 mg/dl (65-105)
--- NOTE | 2022-08-05 08:21 | PM.HPGS ---
History of Present Illness History of Present Illness Consent: Risks, benefits, and alternatives have been discussed and questions answered. Patient agrees to proceed with procedure. Chief complaint: Hx of colon polyps Narrative: [place] Barlow is a 72 year old male Presents for screening colonoscopy. Patient's current weight appetite and bowel movements are normal. Patient denies abdominal pain. He has had no bleeding. Patient does have a prior history of colon polyps on several previous colonoscopies. Most recent colonoscopy 2015. Patient presents today for neoplasia screening. Patient reports his has significant medical illnesses these include recent diagnosis of lung cancer. Review of Systems Review of Systems: Review of systems noncontributory. [facility] Past Medical History Medical History (Updated 08/05/22 @ 08:22 by Ortega Mitchell MD) BMI 25.0-25.9,adult Brain aneurysm CAD (coronary artery disease) 1993: Angioplasty of the mid Left anterior descending 12/1998: Stenting of the RCA ostium, OM2, and Left anterior descending 01/1999: stenting of the Left anterior descending and 2nd diagonal 10/1999: Rotational arthrectomy and stenting of the RCA ostium 01/2012: Angioplasty and stenting of the RCA from the ostium to the mid portion 08/2020: COPD (chronic obstructive pulmonary disease) Depression Diabetes mellitus Diarrhea Eczema Bilateral arms Encounter to establish care Epigastric pain Follow up Hx of colonic polyps Hx of traumatic brain injury Impaired functional mobility, balance, gait, and endurance Orthostatic hypotension SANJU (obstructive sleep apnea) Rhinorrhea Skin lesion Tobacco use Vitamin B deficiency Vitamin B12 deficiency Surgical History Surgical History H/O hernia repair Hx of cholecystectomy Stented coronary artery 1993: Angioplasty of the mid Left anterior descending 12/1998: Stenting of the RCA ostium, OM2, and Left anterior descending 01/1999: stenting of the Left anterior descending and 2nd diagonal 10/1999: Rotational arthrectomy and stenting of the RCA ostium 01/2012: Angioplasty and stenting of the RCA from the ostium to the mid portion Family History Family History Mother Family history of lung cancer Acute myocardial infarction Cancer of cancer age 76 Father Acute myocardial infarction Age 54 Sibling Cancer Social History Social History Social History: over 50 years. 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 The patient still continues to smoke a half a pack of cigarettes a day. His 2 daughters. His is the durable power naphthalene still operator for healthcare. And he is a full code. He denies any alcohol marijuana or illicit drugs. Smoking packs per day: 0.5 Smoking cigarettes per day: 10.0 Years smoked: 50 Smoking pack-years: 25.00 Smoking status: Current every day smoker Tobacco type: cigarettes Alcohol intake: never Substance use: never Substance use type: does not use Living arrangements: with family Gender identity (if verbalized by the patient): Male Spiritual care concerns: No Meds Home Medications and Allergies Home Medications Medication Instructions Recorded Confirmed Type aspirin 81 mg tablet 81 mg PO DAILY 09/04/20 08/05/22 History atorvastatin 40 mg tablet 40 mg PO DAILY 09/04/20 08/05/22 History carvedilol 3.125 mg tablet 3.125 mg PO BID 09/04/20 08/05/22 History losartan 50 mg tablet 50 mg PO DAILY 09/04/20 08/05/22 History semaglutide 0.25 mg or 0.5 mg (2 0.5 mg subcut WEEKLY 09/04/20 08/05/22 History mg/1.5 mL) subcutaneous pen injector (Ozempic) nitroglycerin 0.4 mg sublingual 0.4 mg sublingual Q5MIN PRN Chest 09/05/20 08/05/22 Rx tablet (Nitrostat) Pain #7 tabs cholecalciferol (v
--- NOTE | 2022-08-05 08:24 | WPDANESEPPF ---
Anes - Initial Pre Proc Eval Procedure: Operation Date: 08/05/22 09:00 Proposed Procedures p Screening Colonoscopy - Ortega Mitchell MD Date/Time: 08/05/22 08:24 Surgeon: Ortega Mitchell MD Pre Op Diagnosis: Hx of colon polyps Patient Data Age: 72 Gender: M Height: 1.78 m Weight: 81.1 kg Last Vital Signs Temp 96.4 F L 08/05/22 07:40 Pulse 92 08/05/22 07:40 Resp 18 08/05/22 07:40 BP 110/67 08/05/22 07:40 Pulse Ox 94 08/05/22 07:40 O2 Del Method Room Air 08/05/22 07:40 Allergies Allergy/AdvReac Type Severity Reaction Status Date / Time No Known Allergies Allergy Verified 08/05/22 07:47 Home Medications Medication Instructions Recorded Confirmed Type aspirin 81 mg tablet 81 mg PO DAILY 09/04/20 08/05/22 History atorvastatin 40 mg tablet 40 mg PO DAILY 09/04/20 08/05/22 History carvedilol 3.125 mg tablet 3.125 mg PO BID 09/04/20 08/05/22 History losartan 50 mg tablet 50 mg PO DAILY 09/04/20 08/05/22 History semaglutide 0.25 mg or 0.5 mg (2 0.5 mg subcut WEEKLY 09/04/20 08/05/22 History mg/1.5 mL) subcutaneous pen injector (Ozempic) nitroglycerin 0.4 mg sublingual 0.4 mg sublingual Q5MIN PRN Chest 09/05/20 08/05/22 Rx tablet (Nitrostat) Pain #7 tabs cholecalciferol (vitamin D3) 25 25 mcg PO DAILY 07/07/22 08/05/22 History mcg (1,000 unit) capsule donepezil 10 mg tablet 5 mg PO QHS 07/07/22 08/05/22 History empagliflozin 10 mg tablet 10 mg PO DAILY 07/07/22 08/05/22 History (Jardiance) ipratropium bromide 42 mcg (0.06 2 spray intranasal TID #15 mL 07/07/22 08/05/22 Rx %) nasal spray folic acid 1 mg tablet 1 mg PO DAILY #90 tabs 03/14/23 04/06/23 Rx mecobalamin (vitamin B12) 1,000 1,000 mcg PO DAILY #90 tabs 07/13/22 08/05/22 Rx mcg chewable tablet sodium,potassium,mag sulfates 17.5 See Rx Instructions PO .COMPLEX 07/13/22 08/05/22 Rx gram-3.13 gram-1.6 gram oral soln #354 mL (Suprep Bowel Prep Kit) zolpidem 10 mg tablet 10 mg PO QHS #90 tabs 07/14/22 08/05/22 Rx calcium polycarbophil 625 mg 1,250 mg PO DAILY 07/23/22 08/05/22 History tablet (FiberCon) pyridoxine (vitamin B6) 25 mg 25 mg PO DAILY 07/23/22 08/05/22 History tablet (Vitamin B-6) sertraline 100 mg tablet 100 mg PO DAILY 07/23/22 08/05/22 History fluticasone fur. 100 mcg-umeclid 1 inh inhalation DAILY #60 ea 08/03/22 08/05/22 Rx 62.5 mcg-vilant 25 mcg inhalat.powder (Trelegy Ellipta) insulin aspart U-100 100 unit/mL 5 unit (0.05 mL) subcut TID PRN DM 08/03/22 08/05/22 Rx (3 mL) subcutaneous pen (Novolog type II #15 mL FlexPen U-100 Insulin aspart) insulin degludec 200 unit/mL (3 50 unit subcut DAILY 08/03/22 08/05/22 History mL) subcutaneous pen (Tresiba FlexTouch U-200 insulin) Laboratory Tests 08/05/22 07:53 POC Capillary Glucose 99 mg/dl mg/dl (65-105) Patient hx anesthesia problems: none Family hx anesthesia problems: none Results Review: All pre-operative results and documents have been reviewed as part of the pre-operative evaluation. [facility] Past Medical History Medical History (Updated 08/05/22 @ 08:22 by Ortega Mitchell MD) BMI 25.0-25.9,adult Brain aneurysm CAD (coronary artery disease) 1992: Angioplasty of the mid Left anterior descending 12/1998: Stenting of the RCA ostium, OM2, and Left anterior descending 01/1999: stenting of the Left anterior descending and 2nd diagonal 10/1999: Rotational arthrectomy and stenting of the RCA ostium 01/2012: Angioplasty and stenting of the RCA from the ostium to the mid portion 08/2020: COPD (chronic obstructive pulmonary disease) Depression Diabetes mellitus Diarrhea Eczema Bilateral arms Encounter to establish care Epigastric pain Follow up Hx of colonic polyps Hx of traumatic brain injury Impaired functional mobility, balance, gait, and endurance Orthostatic hypotension SANJU (obstructive sleep apnea) Rhinorrhea Skin lesion Tobacco use Vitamin B deficiency Vitamin B12 de
[2022-08-05 09:28] VITALS: BP 84/54; PULSE 70; RESP 20; O2SAT 93
[2022-08-05 09:38] VITALS: BP 111/67; PULSE 69; RESP 24; O2SAT 96
[2022-08-05 09:48] VITALS: BP 118/70; PULSE 72; RESP 22; O2SAT 95
== END 2022-08-05 10:00 | disposition home or self-care (01) ==
PROVIDERS: PCP Internal Medicine; Visit Provider Internal Medicine Gastroenterology
PROC: 0DJD8ZZ Inspection of Lower Intestinal Tract, Via Natural or Artificial Opening Endoscopic (ICD-10-PCS; CPT 45378; principal; 2022-08-05 09:00)
DX: Z12.11 Encounter for screening for malignant neoplasm of colon (principal); K64.8 Other hemorrhoids; Z86.010 Personal history of colon polyps; I25.10 Atherosclerotic heart disease of native coronary artery without angina pectoris; J44.9 Chronic obstructive pulmonary disease, unspecified; E11.9 Type 2 diabetes mellitus without complications; F32.A Depression, unspecified; G47.33 Obstructive sleep apnea (adult) (pediatric); E53.8 Deficiency of other specified B group vitamins; Z87.820 Personal history of traumatic brain injury; Z95.5 Presence of coronary angioplasty implant and graft; F17.210 Nicotine dependence, cigarettes, uncomplicated; Z79.899 Other long term (current) drug therapy; Z79.82 Long term (current) use of aspirin; Z79.84 Long term (current) use of oral hypoglycemic drugs; Z79.51 Long term (current) use of inhaled steroids; Z79.4 Long term (current) use of insulin
CPT/HCPCS: G0105; 82948; J2704; J7120

== ENCOUNTER 2023-03-28 09:58 | Outpatient (CLI) | payer MEDICARE, SELFPAY ==
--- NOTE | ~2023-03-28 | XR_ITS ---
EXAMINATION: XR chest 2V DATE: 03/28/2023 10:27 INDICATION: Cough, unspecified. TECHNIQUE: Frontal and lateral views of the chest were obtained. COMPARISON: Chest 2 views 09/04/2020, chest CT 07/27/2022 FINDINGS: The lungs are hyperexpanded, consistent with emphysema. There is no pneumonia, pleural effu palomo, or pneumothorax. The heart size is normal. Median sternotomy wires and mediastinal surgical cli ps are seen, likely from prior coronary artery bypass grafting. There are changes of anterior fusion procedure in cervical spine. There is mild chronic anterior wedging of multiple vertebral bodies. IMPRESSION: 1. Emphysema. Reviewed, dictated and finalized at location A. DING TECHNICIAN IMPRESSION: 1. Emphysema.
[2023-03-28 11:18] LABS: Basophils Percent Auto 0.4 % (0.2-1.2); Eosinophils Absolute Auto 0.4 K/mm3 (0-0.3); Eosinophils Percent Auto 3.3 % (0-4.4); Hematocrit 55.9 % (42.0-52.0); Hemoglobin 18.4 g/dL (14.0-18.0); Immature Granulocyte Absolute 0.03 K/mm3 (0.00-0.031); Immature Granulocyte Percent A 0.3 % (0-0.5); Lymphocytes Absolute Auto 2.53 K/mm3 (0.9-3.2); Lymphocytes Percent Auto 23.2 % (18.3-44.2); Mean Corpuscular HGB Conc 32.9 g/dl (32-36); Mean Corpuscular Hemoglobin 31.5 pg (26-34); Mean Corpuscular Volume 95.7 fl (80-100); Mean Platelet Volume 10.1 fl (7.4-10.4); Monocytes Absolute Auto 0.9 K/mm3 (0.1-0.6); Monocytes Percent Auto 8.2 % (2.6-8.5); Neutrophils Absolute Auto 7.1 K/mm3 (1.3-6.7); Neutrophils Percent Auto 64.6 % (45.5-73.1); Platelet Count Result 182 k/mm3 (150-375); Red Blood Count 5.84 M/mm3 (4.6-6.20); Red Cell Distribution Width 14.4 % (11.5-14.5); White Blood Count 10.9 K/mm3 (4.5-10.0)
== END 2023-03-28 09:59 | disposition home or self-care (01) ==
PROVIDERS: PCP Internal Medicine; Visit Provider Internal Medicine
DX: R05.9 Cough, unspecified (principal); J43.9 Emphysema, unspecified
CPT/HCPCS: 36415; 71046; 85025

== ENCOUNTER 2023-04-05 11:08 | Outpatient (CLI) | payer MEDICARE, SELFPAY ==
--- NOTE | ~2023-04-05 | XR_ITS ---
XR chest 2V 04/05/2023 11:31 Indication: Cough for 2 months Procedure: 2 view chest Comparison: Comparison to multiple prior studies sequentially, with oldest reviewed study dated 09/2016. Findings: Status post median sternotomy for CABG. Heart size normal. No focal air space disease, pulm onary edema, pleural effusion or suspected pneumothorax. Impression: 1: No acute cardiopulmonary disease. Reviewed, dictated and finalized at location L. MECHANIC Impression: 1: No acute cardiopulmonary disease.
== END 2023-04-05 11:09 | disposition home or self-care (01) ==
PROVIDERS: PCP Internal Medicine; Visit Provider Internal Medicine
DX: R05.9 Cough, unspecified (principal)
CPT/HCPCS: 71046

== ENCOUNTER 2023-04-26 14:27 | Outpatient (CLI) | payer MEDICARE, SELFPAY ==
--- NOTE | ~2023-04-26 | XR_ITS ---
EXAMINATION: XR abdomen obstructive series DATE: 04/26/2023 15:03 INDICATION: Nausea with vomiting, unspecified. TECHNIQUE: Upright and supine views of the abdomen on 3 radiographs were obtained. COMPARISON: None. FINDINGS: There are no dilated loops of bowel. There is a small volume of stool in the colon. No free intraperitoneal gas. Surgical clips in the right upper quadrant are likely from cholecystectomy. The re is screw fixation of left sacroiliac joint. Median sternotomy wires and mediastinal surgical clips are seen, likely from prior coronary artery bypass grafting. IMPRESSION: 1. Normal bowel gas pattern. Reviewed, dictated and finalized at location E. R LAW PROFESSOR
--- NOTE | ~2023-04-26 | XR_ITS ---
XR chest 2V 04/26/2023 15:03 Indication: Personal history of Covid infection. Procedure: 2 view chest Comparison: Comparison to multiple prior studies sequentially, with oldest reviewed study dated 07/09. Findings: Heart size normal. Status post median sternotomy for CABG. No focal air space disease, pulm onary edema, pleural effusion or suspected pneumothorax. Impression: 1: No acute cardiopulmonary disease. Reviewed, dictated and finalized at location L. ESSING INSPECTOR Impression: 1: No acute cardiopulmonary disease.
[2023-04-26 14:49] LABS: Basophils Percent Auto 0.5 % (0.2-1.2); Eosinophils Absolute Auto 0.1 K/mm3 (0-0.3); Eosinophils Percent Auto 1.1 % (0-4.4); Hematocrit 52.3 % (42.0-52.0); Hemoglobin 17.5 g/dL (14.0-18.0); Immature Granulocyte Absolute 0.04 K/mm3 (0.00-0.031); Immature Granulocyte Percent A 0.5 % (0-0.5); Lymphocytes Absolute Auto 1.04 K/mm3 (0.9-3.2); Lymphocytes Percent Auto 12.9 % (18.3-44.2); Mean Corpuscular HGB Conc 33.5 g/dl (32-36); Mean Corpuscular Volume 92.7 fl (80-100); Mean Platelet Volume 9.7 fl (7.4-10.4); Monocytes Absolute Auto 1.3 K/mm3 (0.1-0.6); Monocytes Percent Auto 15.8 % (2.6-8.5); Neutrophils Absolute Auto 5.6 K/mm3 (1.3-6.7); Neutrophils Percent Auto 69.2 % (45.5-73.1); Platelet Count Result 182 k/mm3 (150-375); Red Blood Count 5.64 M/mm3 (4.6-6.20); Red Cell Distribution Width 13.9 % (11.5-14.5); White Blood Count 8.1 K/mm3 (4.5-10.0)
[2023-04-26 14:59] LABS: Anion Gap 10 mmol/L (8-16); Blood Urea Nitrogen 28 mg/dL (9-20); Calcium 8.6 mg/dL (8.4-10.2); Carbon Dioxide 29 mmol/L (22-30); Chloride 95 mmol/L (98-107); Estimated Glomerular Filt Rate > 60; Glucose 202 mg/dL (65-110); Potassium 3.8 mmol/L (3.4-5.0); Sodium 134 mmol/L (137-145)
== END 2023-04-26 14:28 | disposition home or self-care (01) ==
PROVIDERS: PCP Internal Medicine; Visit Provider Internal Medicine
DX: R05.8 Other specified cough (principal); R11.2 Nausea with vomiting, unspecified; T46.4X5A Adverse effect of angiotensin-converting-enzyme inhibitors, initial encounter; Z86.16 Personal history of COVID-19
CPT/HCPCS: 36415; 71046; 74019; 80048; 85025

== ENCOUNTER 2023-07-29 09:41 | Outpatient (CLI) | payer MEDICARE, SELFPAY ==
--- NOTE | ~2023-07-29 | CT_ITS ---
EXAMINATION: CT lung screening DATE: 07/29/2023 10:06 INDICATION: Personal history of nicotine dependence TECHNIQUE: Computed tomography (CT) of the chest was performed without intravenous contrast. The dose -length product was 219.71 mGy-cm. Automated exposure control and iterative reconstruction technique were employed. COMPARISON: CT dated 07/27/2022 FINDINGS: No significant pleural or pericardial effusion. There is a partially calcified gastric mass measuring approximately 1.4 cm. Recommend further evaluation with endoscopy recommended. There is an accessory splenule. No thoracic lymphadenopathy. There is atherosclerosis of the aorta and coronary arteries. Status post median sternotomy for CABG. Status post cholecystectomy. Stable small scattered bilateral pulmonary nodules measuring 3 mm or less, likely benign. No endobronchial lesions. There i s emphysema. No pneumothorax. Moderate thoracic spondylosis. IMPRESSION: 1. . Lung-RADS category 2: Benign appearance or behavior. Continue annual screening with noncontrast low-dose chest CT in 12 months. 2: Partially calcified gastric wall mass measuring 1.4 cm. Recommend GI consultation with endoscopic correlation. Reviewed, dictated and finalized at location B. IMPRESSION: 1. . Lung-RADS category 2: Benign appearance or behavior. Continue annual scree cipriano with noncontrast low-dose chest CT in 12 months. 2: Partially calcified gastric wall mass measuring 1.4 cm. Recommend GI consul tation with endoscopic correlation.
== END 2023-07-29 09:42 | disposition home or self-care (01) ==
PROVIDERS: PCP Internal Medicine; Visit Provider Physician Assistant
DX: Z12.2 Encounter for screening for malignant neoplasm of respiratory organs (principal); Z87.891 Personal history of nicotine dependence
CPT/HCPCS: 71271

== ENCOUNTER 2023-08-09 13:02 | Outpatient (CLI) | payer MEDICARE, SELFPAY ==
[2023-08-09 13:49] LABS: Alanine Aminotransferase 23 U/L (6-50); Albumin Level 4.4 g/dL (3.5-5.1); Alkaline Phosphatase 94 U/L (38-126); Anion Gap 5 mmol/L (4-12); Aspartate Amino Transferase 19 U/L (17-59); Bilirubin,Total 0.7 mg/dL (0.2-1.3); Blood Urea Nitrogen 20 mg/dL (9-20); Calcium 9.9 mg/dL (8.4-10.2); Carbon Dioxide 30 mmol/L (22-30); Chloride 95 mmol/L (98-107); Estimated Glomerular Filt Rate 59; Glucose 491 mg/dL (65-110); Potassium 4.7 mmol/L (3.4-5.0); Sodium 130 mmol/L (137-145)
[2023-08-09 13:50] LABS: Cholesterol 128 mg/dL (0-200); HDL Direct 31 mg/dL; Triglycerides 236 mg/dL (<150)
[2023-08-09 14:09] LABS: LDL Cholesterol Direct 66 mg/dL
[2023-08-09 14:10] LABS: Appearance Urine Clear (Clear); Bilirubin Urine Negative (Negative); Blood Urine Negative (Negative); Color Urine Yellow (Yellow); Glucose Urine UA 3+ mg/dL (Negative); Ketones Urine Negative (Negative); Leukocyte Esterase Ur Negative LEU/UL (Negative); Nitrate Urine Negative (Negative); Protein Urine Negative (Negative); Urobilinogen Urine 0.2 mg/dL (<2.0); pH Urine 5.5 (5.0-9.0)
[2023-08-09 14:13] LABS: Add Urine Microscopic? NO; Specific Grav Ur 1.038 (1.001-1.035)
[2023-08-09 14:44] LABS: Free T4 Free Thyroxine 1.43 ng/mL (0.78-2.19)
[2023-08-09 16:03] LABS: Hemoglobin A1C 11.6 % (<5.7)
[2023-08-09 16:57] LABS: Creatinine Urine 38.3 mg/dL
[2023-08-09 17:04] LABS: MALB Creatinine Ratio < 15.7 mg/g (0-30); Microalbumin Urine Random < 6.0 mg/L (0-16.7)
[2023-08-09 23:47] LABS: Folic Acid > 20.0 ng/mL (2.76->20)
== END 2023-08-09 13:03 | disposition home or self-care (01) ==
LOC: ANHLAB 13:06
PROVIDERS: PCP Internal Medicine; Visit Provider Internal Medicine
DX: E78.5 Hyperlipidemia, unspecified (principal); E53.8 Deficiency of other specified B group vitamins; Z13.29 Encounter for screening for other suspected endocrine disorder; E11.9 Type 2 diabetes mellitus without complications; Z79.899 Other long term (current) drug therapy
CPT/HCPCS: 36415; 80053; 80061; 81003; 82043; 82607; 82746; 83036; 84439; 84443

== ENCOUNTER 2023-08-30 09:37 | Outpatient (CLI) | payer MEDICARE, SELFPAY ==
--- NOTE | ~2023-08-30 | CT_ITS ---
EXAMINATION: CT brain wo con DATE: 08/30/2023 10:22 INDICATION: Repeated falls. TECHNIQUE: Computed tomography (CT) of the head was performed without intravenous contrast. The mA wa s adjusted according to patient size. Iterative reconstruction technique was employed. The dose-lengt h product was 681.00 mGy-cm. COMPARISON: None FINDINGS: There is chronic encephalomalacia in the anteroinferior frontal lobes and anteroinferior le ft temporal lobe. There are scattered areas of low attenuation in the cerebral white matter. There is no intracranial hemorrhage, acute infarction, or abnormal intracranial mass lesion. The ventricles a re normal in size. There is mild mucosal thickening in the paranasal sinuses. There is thickening scl erosis of the florez of sphenoid sinus and right maxillary sinus, consistent with chronic sinusitis. T he mastoid air cells are normal. The orbits are normal. IMPRESSION: 1. Chronic encephalomalacia in the anteroinferior frontal lobes and left temporal lobe in a distribut ion typical of traumatic brain injury. 2. Moderate nonspecific cerebral white matter disease, which likely represents chronic small vessel i schemic disease. Reviewed, dictated and finalized at location A. IMPRESSION: 1. Chronic encephalomalacia in the anteroinferior frontal lobes and left tempor al lobe in a distribution typical of traumatic brain injury. 2. Moderate nonspecific cerebral white matter disease, which likely represents chronic small vessel ischemic disease.
== END 2023-08-30 09:38 | disposition home or self-care (01) ==
PROVIDERS: PCP Internal Medicine; Visit Provider Internal Medicine
DX: R29.6 Repeated falls (principal); I67.1 Cerebral aneurysm, nonruptured; Z74.09 Other reduced mobility; Z87.820 Personal history of traumatic brain injury; R41.3 Other amnesia; R90.82 White matter disease, unspecified
CPT/HCPCS: 70450

== ENCOUNTER 2023-10-12 01:10 | Day surgery (SDC) | payer MEDICARE, SELFPAY ==
[2023-08-09 15:20] VITALS: BMI 23.0
--- NOTE | 2023-09-14 11:13 | PC.NURSE ---
Patient called regarding upcoming procedure. Reviewed preop instructions, appointment times, and procedure prep. Verified that patient has not had any changes to medical hx or medications.
[2023-10-04 12:33] VITALS: BMI 23.0
[2023-10-12 09:11] VITALS: BP 128/75; PULSE 95; RESP 16; TEMP 36.1; O2SAT 95
--- NOTE | 2023-10-12 09:15 | PM.HPGS ---
History of Present Illness History of Present Illness Consent: Risks, benefits, and alternatives have been discussed and questions answered. Patient agrees to proceed with procedure. Chief complaint: Other diseases of stomach/duodenum Narrative: Los Barlow is a 73 year old male with knot sensation in epigastric area , last EGD with possible leiomyoma in stomach 2 years ago Review of Systems Review of Systems: All systems reviewed & are unremarkable except as noted in HPI and below PMFSH Past Medical History Medical History (Updated 10/12/23 @ 09:20 by Tejinder Cummins MD) GAVIN-inhibitor cough BMI 22.0-22.9, adult BMI 24.0-24.9, adult BMI 25.0-25.9,adult BMI 26.0-26.9,adult BMI 27.0-27.9,adult Brain aneurysm CAD (coronary artery disease) 1993: Angioplasty of the mid Left anterior descending 12/1998: Stenting of the RCA ostium, OM2, and Left anterior descending 01/1999: stenting of the Left anterior descending and 2nd diagonal 10/1999: Rotational arthrectomy and stenting of the RCA ostium 01/2012: Angioplasty and stenting of the RCA from the ostium to the mid portion 08/2020: Cataracts, bilateral COPD (chronic obstructive pulmonary disease) Depression Diabetes mellitus Diarrhea Eczema Bilateral arms Encounter for Medicare annual wellness exam Encounter for routine adult health examination without abnormal findings Encounter to establish care Epigastric pain Follow up Hearing loss Hx of colonic polyps Hx of traumatic brain injury Impaired functional mobility, balance, gait, and endurance Nausea and vomiting Orthostatic hypotension SANJU (obstructive sleep apnea) Personal history of COVID-19 Rhinorrhea Skin lesion Tobacco use Vitamin B deficiency Vitamin B12 deficiency Weakness Surgical History Surgical History H/O hernia repair Hx of cholecystectomy Stented coronary artery 1993: Angioplasty of the mid Left anterior descending 12/1998: Stenting of the RCA ostium, OM2, and Left anterior descending 01/1999: stenting of the Left anterior descending and 2nd diagonal 10/1999: Rotational arthrectomy and stenting of the RCA ostium 01/2012: Angioplasty and stenting of the RCA from the ostium to the mid portion Family History Family History Mother Family history of lung cancer Acute myocardial infarction Cancer of cancer age 76 Father Acute myocardial infarction Age 54 Sibling Cancer Social History Social History Social History: over 50 years. 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 The patient still continues to smoke a half a pack of cigarettes a day. His 2 daughters. His is the durable power senior trial attorney for healthcare. And he is a full code. He denies any alcohol marijuana or illicit drugs. Smoking packs per day: 1.5 Smoking cigarettes per day: 30.0 Years smoked: 50 Smoking pack-years: 75.00 Smoking status: Current some day smoker Tobacco type: cigarettes Alcohol intake: never Substance use: never Substance use type: does not use Living arrangements: alone Gender identity (if verbalized by the patient): Male Spiritual care concerns: No Meds Home Medications and Allergies Home Medications Medication Instructions Recorded Confirmed Type aspirin 81 mg tablet 81 mg PO DAILY 09/04/20 10/04/23 History nitroglycerin 0.4 mg sublingual 0.4 mg sublingual Q5MIN PRN Chest 09/05/20 10/04/23 Rx tablet (Nitrostat) Pain #7 tabs donepezil 10 mg tablet (Aricept) 5 mg PO QHS 07/07/22 10/04/23 History mecobalamin (vitamin B12) 1,000 1,000 mcg PO DAILY #90 tabs 07/13/22 10/04/23 Rx mcg chewable tablet calcium polycarbophil 625 mg 1,250 mg PO DAILY 07/23/22 10/04/23 History tablet (FiberCon) sertraline 100 mg tablet 100 mg PO DAILY #90
[2023-10-12] MEDS: LACTATED RINGERS 1,000 ML 150 ML IV CONT (09:19)
[2023-10-12 09:37] VITALS: BP 101/64; PULSE 80; RESP 25; O2SAT 93
--- NOTE | 2023-10-12 09:38 | WPDANESEPPF ---
Anes - Initial Pre Proc Eval Procedure: Operation Date: 10/12/23 10:30 Proposed Procedures p Esophagogastroduodenoscopy - Tejinder Cummins MD Date/Time: 10/12/23 09:38 Surgeon: Tejinder Cummins MD Pre Op Diagnosis: Other diseases of stomach/duodenum Patient Data Age: 73 Gender: M Height: 1.78 m Weight: 78.2 kg Last Vital Signs Temp 96.9 F L 10/12/23 09:11 Pulse 95 10/12/23 09:11 Resp 16 10/12/23 09:11 BP 128/75 10/12/23 09:11 Pulse Ox 95 10/12/23 09:11 O2 Del Method Room Air 10/12/23 09:11 Allergies Allergy/AdvReac Type Severity Reaction Status Date / Time No Known Allergies Allergy Verified 10/12/23 09:22 Home Medications Medication Instructions Recorded Confirmed Type aspirin 81 mg tablet 81 mg PO DAILY 09/04/20 10/04/23 History nitroglycerin 0.4 mg sublingual 0.4 mg sublingual Q5MIN PRN Chest 09/05/20 10/04/23 Rx tablet (Nitrostat) Pain #7 tabs donepezil 10 mg tablet (Aricept) 5 mg PO QHS 07/07/22 10/04/23 History mecobalamin (vitamin B12) 1,000 1,000 mcg PO DAILY #90 tabs 07/13/22 10/04/23 Rx mcg chewable tablet calcium polycarbophil 625 mg 1,250 mg PO DAILY 07/23/22 10/04/23 History tablet (FiberCon) sertraline 100 mg tablet 100 mg PO DAILY #90 tabs 08/06/22 10/04/23 Rx CPAP Machine #1 ea 11/22/22 10/04/23 Rx losartan 50 mg tablet See Rx Instructions .Route 02/10/23 10/04/23 Rx .COMPLEX #90 tabs zolpidem 10 mg tablet 10 mg PO QHS #90 tabs 04/27/23 10/04/23 Rx famotidine 40 mg tablet 40 mg PO DAILY #90 tabs 06/06/23 10/04/23 Rx albuterol sulfate 90 mcg/actuation 1 inh inhalation Q4H PRN shortness 08/09/23 10/04/23 Rx aerosol inhaler of breath or wheezing #8.5 grams insulin lispro 200 unit/mL (3 mL) 10 unit (0.05 mL) subcut TID #18 mL 08/09/23 10/04/23 Rx subcutaneous pen (Humalog KwikPen U-200 Insulin) ipratropium bromide 42 mcg (0.06 2 spray intranasal TID PRN Nasal 08/09/23 10/04/23 History %) nasal spray Congestion blood-glucose meter #1 ea 08/11/23 10/04/23 Rx blood sugar diagnostic (OneTouch #100 ea 08/12/23 10/04/23 Rx Verio test strips) lancets #100 ea 08/12/23 10/04/23 Rx pen needle, diabetic 32 gauge x #50 ea 08/16/23 10/04/23 Rx 5/32 (BD Ultra-Fine Celina Pen Needle) blood-glucose meter,continuous #1 ea 08/22/23 10/04/23 Rx (FreeStyle Angelito 3 Spencer) empagliflozin 10 mg tablet See Rx Instructions .Route 08/31/23 10/04/23 Rx (Jardiance) .COMPLEX #90 tabs semaglutide 0.25 mg or 0.5 mg (2 0.5 mg (0.736 mL) subcut WEEKLY #9 09/21/23 10/04/23 Rx mg/3 mL) subcutaneous pen injector mL (Ozempic) atorvastatin 40 mg tablet 40 mg PO DAILY #90 tabs 10/05/23 10/12/23 Rx carvedilol 3.125 mg tablet 3.125 mg PO BID #90 tabs 10/05/23 10/12/23 Rx fluticasone fur. 100 mcg-umeclid 1 inh inhalation DAILY #60 ea 10/05/23 Rx 62.5 mcg-vilant 25 mcg inhalat.powder (Trelegy Ellipta) folic acid 1 mg tablet 1 mg PO DAILY #90 tabs 10/05/23 Rx blood-glucose sensor (FreeStyle #6 ea 10/12/23 Rx Angelito 3 Sensor device) Patient hx anesthesia problems: none Family hx anesthesia problems: none Results Review: All pre-operative results and documents have been reviewed as part of the pre-operative evaluation. [facility] Past Medical History Medical History (Updated 10/12/23 @ 09:20 by Tejinder Cummins MD) GAVIN-inhibitor cough BMI 22.0-22.9, adult BMI 24.0-24.9, adult BMI 25.0-25.9,adult BMI 26.0-26.9,adult BMI 27.0-27.9,adult Brain aneurysm CAD (coronary artery disease) 1992: Angioplasty of the mid Left anterior descending 12/1998: Stenting of the RCA ostium, OM2, and Left anterior descending 01/1999: stenting of the Left anterior descending and 2nd diagonal 10/1999: Rotational arthrectomy and stenting of the RCA ostium 01/2012: Angioplasty and stenting of the RCA from the ostium to the mid portion 08/2020: Cataracts, bilateral COPD (chronic obstructive pulmonary disease) Depression Diabet
[2023-10-12 09:47] VITALS: BP 103/64; PULSE 82; RESP 20; O2SAT 93
[2023-10-12 09:48] LABS: Glucose Point of Care 149 mg/dl (65-105)
[2023-10-12 09:48] LABS: Glucose Point of Care 160 mg/dl (65-105)
[2023-10-12 09:57] VITALS: BP 107/71; PULSE 79; RESP 20; O2SAT 97
== END 2023-10-12 10:07 | disposition home or self-care (01) ==
PROVIDERS: PCP Internal Medicine; Referring Provider Physician Assistant; Visit Provider Internal Medicine Gastroenterology
PROC: 0DJ08ZZ Inspection of Upper Intestinal Tract, Via Natural or Artificial Opening Endoscopic (ICD-10-PCS; CPT 43235; principal; 2023-10-12 10:30)
DX: K29.50 Unspecified chronic gastritis without bleeding (principal); I25.10 Atherosclerotic heart disease of native coronary artery without angina pectoris; J44.9 Chronic obstructive pulmonary disease, unspecified; E11.9 Type 2 diabetes mellitus without complications; F32.A Depression, unspecified; G47.33 Obstructive sleep apnea (adult) (pediatric); E53.8 Deficiency of other specified B group vitamins; Z87.820 Personal history of traumatic brain injury; Z95.5 Presence of coronary angioplasty implant and graft; F17.210 Nicotine dependence, cigarettes, uncomplicated; Z79.82 Long term (current) use of aspirin; Z79.51 Long term (current) use of inhaled steroids; Z79.4 Long term (current) use of insulin; Z79.84 Long term (current) use of oral hypoglycemic drugs; Z79.85 Long-term (current) use of injectable non-insulin antidiabetic drugs
CPT/HCPCS: 43239; 82948; 88305; J2001; J2704; J7120

== ENCOUNTER 2024-05-22 10:46 | Outpatient (CLI) | payer MEDICARE, SELFPAY ==
--- NOTE | ~2024-05-22 | CT_ITS ---
EXAMINATION: CT chest abdomen pelvis w con DATE: 05/22/2024 11:12 INDICATION: Personal history of nicotine dependence TECHNIQUE: Computed tomography (CT) of the chest, abdomen, and pelvis was performed with 100 mL Omnip aque-350 intravenous contrast. Automated exposure control and iterative reconstruction technique were employed. The dose-length product was 550.86 mGy-cm. COMPARISON: 07/29/2023 FINDINGS: CHEST CT: Mild to moderate upper lung predominant emphysema. There are multiple unchanged <4 mm pulmonary nodul es scattered throughout both lungs. There are also several larger 5-9 mm nodules in the right upper, right middle lobes, lingula and anterobasilar segment of the left lower lobe which are new since the prior study. Mild dependent emphysema in the right lower lobe. No pulmonary edema or pleural effusion . Heart size is normal. Atherosclerotic coronary artery calcifications and possible coronary artery s tenting. Median sternotomy wires and mediastinal surgical clips are seen consistent with prior bergeron ry artery bypass grafting. No pericardial effusion. Thoracic aorta is normal in caliber with no disse ction. No evident pulmonary embolism. No pathologically enlarged thoracic lymphadenopathy. ABDOMEN/PELVIS CT: Unchanged 1.5 cm rim calcified exophytic mass arising from the proximal greater curvature of the stom ach. Cholecystectomy clips the gallbladder fossa. Liver, spleen, pancreas and bilateral adrenal gland s are normal. Bilateral low-attenuation renal cysts the largest on the left measuring 1.4 cm. Fusifor m infrarenal abdominal aortic aneurysm measuring up to 4.7 x 4.4 cm. There is a small dissection flap at the origin of the right common iliac artery. Bowels including the appendix are normal. Bladder is normal. Prostatomegaly measuring 5.8 x 4.1 cm. No free intraperitoneal gas or fluid. No pathological ly enlarged abdominal or pelvic lymphadenopathy. Mild to moderate thoracic and severe lumbar spondylo sis. There is a screw spanning the cephalad aspect of the left sacroiliac joint. Old healed fractures of the right pubic body and right inferior pubic ramus. IMPRESSION: 1. Mild to moderate emphysema with multiple pulmonary nodules many of the smaller nodule unchanged si nce the prior study but with several indeterminate larger new nodules measuring between 5-9 mm primar rena in the anterior lungs. Given the posterior and regional distribution would favor infectious over malignant/metastatic etiology. Recommend 1-3 month follow-up low-dose noncontrast chest CT. 2. 4.7 cm fusiform infrarenal abdominal aortic aneurysm. 3. Indeterminate 1.5 cm rim calcified exophytic mass arising from the proximal stomach without interv al change in size but with increasing rim calcification when compared with prior CT studies from 2017 and 08/10/2018 which favors a benign etiology. 4. Prostatomegaly. Reviewed, dictated and finalized at location A. [facility] [employer] [facility] [facility] IMPRESSION: 1. Mild to moderate emphysema with multiple pulmonary nodules many of the small er nodule unchanged since the prior study but with several indeterminate larger new nodules measuring between 5-9 mm primarily in the anterior lungs. Given th e posterior and regional distribution would favor infectious over malignant/met astatic etiology. Recommend 1-3 month follow-up low-dose noncontrast chest CT. 2. 4.7 cm fusiform infrarenal abdominal aortic aneurysm. 3. Indeterminate 1.5 cm rim calcified exophytic mass arising from the proximal stomach without interval change in size but with increasing rim calcification w hen compared with prior CT studies from 11/05/2017 and 08/10/2018 which favors a b enign etiology. 4. Prostatomegaly.
[2024-05-22 11:08] LABS: Estimated Glomerular Filt Rate > 60
== END 2024-05-22 10:47 | disposition home or self-care (01) ==
PROVIDERS: PCP Internal Medicine; Visit Provider Internal Medicine
DX: R63.4 Abnormal weight loss (principal); Z87.891 Personal history of nicotine dependence; J43.9 Emphysema, unspecified; I71.40 Abdominal aortic aneurysm, without rupture, unspecified; N40.0 Benign prostatic hyperplasia without lower urinary tract symptoms
CPT/HCPCS: 71260; 74177; Q9967

== ENCOUNTER 2024-06-25 11:05 | Outpatient (CLI) | payer MEDICARE, SELFPAY ==
--- NOTE | ~2024-06-25 | CT_ITS ---
CT Scan of the Chest without Contrast: Clinical Indication: Pulmonary nodule Technique: Contiguous sections were acquired throughout the chest without intravenous contrast. Dose reduction technique was used on this scan by utilizing automated exposure control and iterative recon struction technique. The dose-length product (DLP) was 86.50 mGy-cm. COMPARISON: 05/22/2024 Findings: There is no evidence of any significant mediastinal, hilar or axillary lymphadenopathy. Coronary reina ry calcifications are present. There is no evidence of pleural or pericardial effusion. Scattered bilateral pulmonary nodules are essentially stable from prior exam. Largest nodule within t he inferior right upper lobe (axial image 70). Images through the upper abdomen reveal stable densely partially calcified small mass arising from th e gastric wall along the greater curvature. Impression: Multiple scattered subcentimeter pulmonary nodules are stable from prior exam, most likely infectious /inflammatory, versus postinflammatory, in nature. Metastatic disease felt to be less likely. Reviewed, dictated and finalized at [facility]. L CLERK Impression: Multiple scattered subcentimeter pulmonary nodules are stable from prior exam, most likely infectious/inflammatory, versus postinflammatory, in nature. Metast atic disease felt to be less likely.
--- OUTSIDE RECORDS SUMMARY | 2024-06-25 12:54 | XMS_ITS | Patient Health Summary ---
Author Organization [facility] Address [address] [place] [address] Care Team Providers Care Link Trainer Operator Name Role Phone Federico Watt MD Primary Care Provider Note from [facility],non-owned Affiliates and Associated Physician Practices is amultiple site organization consisting of ambulatory clinics and hospital sitesin [place], [place], [place] and [place]. This disclosure is being madepursuant to the Care Everywhere program and may not contain all information available regarding this patient. Last updated 18.[facility] [employer] Social History Tobacco Use Types Packs/Day Years Used Date Smoking Tobacco: Never Assessed Sex and Gender Information Value Date Recorded Sex Assigned at Not on file Gender Identity Not on file Sexual Orientation Not on file Procedures * DERMATOPATHOLOGY(Performed 12/01/2016) Results * PATHOLOGY TISSUE FOR DERMATOLOGY (12/01/2016 12:00 AM CDT) Result CASE: [id number] PATIENT: KYLEE NORTON PATHOLOGIC DIAGNOSIS: Right lateral leg: GRANULOMA ANNULARE CLINICAL DATA: GA R/O other. GROSS DESCRIPTION: Received is one formalin filled container labeled with the patients name and designated right lateral leg. The specimen consists of a punch measuring [id number]. The specimen is bisected and submitted in 1 cassette. Jar 0. MICROSCOPIC DESCRIPTION: There are lymphocytes around blood vessels and histiocytes between collagen bundles some of which are arranged in a palisade. The collagen is focally altered. Electronically signed out by Ana M Henao M.D., PhD. 12/03/2016 2:03:28PM [facility] Comment: Performed at: Dermatopathology Laboratory [facility] Department of Dermatology [address] [place] [address], 5[address] [place] [address] Phone number: [phone] FAX: [phone] Skin (tissue) specimen (specimen) 12/01/2016 12/02/2016 Narrative [facility] - 12/03/2016 2:03 PM CDT Josefina Shore MD Preferred Lab:->Derm-Path Specimen A: Type->Punch Site->R lateral leg History->suspected GA previously responded to ILK on arms; new diffuse eruption of pink papules coalescing into annular palques on bilateral lower extremities; patient requesting definitiive diagnosis Impression->GA; r/o other Check Margins:->N/A Prior Biopsy->N/A Josefina Shore MD LAB - PATHOLOGY/CYTO LOGY ORDERABLES [facility] [address] [place] [address]. 5th Floor Lab [address] [phone] Care Teams Link Trainer Operator Relationship Specialty Start Date End Date Federico Watt MD [address] [place] [address] PCP - General 01/08/22
--- OUTSIDE RECORDS SUMMARY | 2024-06-25 12:54 | XMS_ITS | Clinical Summary ---
Author Organization [facility] Address [address] [place] [address] Care Team Providers Care Computer Support Specialist Name Role Phone GuillaumeaceranchotemoSergey Ruben CASTELLANO Primary Care Provider + Allergies No known active allergies Medications aspirin EC 81 MG tablet Take 81 mg by mouth daily. Active Insulin Pen Needle (PEN NEEDLES) 31G X 5 MM MiscIndications:Ty pe 2 diabetes mellitus without complication, with long-term current use of insulin ([facility]) Use as directed to inject insulin daily 100 each 3 9 Active CPAP DEVICE, DME, 1 Device by Does not apply route. Active Lancets MiscIndications:Ty pe 2 diabetes mellitus without complication, with long-term current use of insulin ([facility]) Check blood sugar three times daily 3 Container 11 0 Active Insulin Syringe-Needle U-100 (INSULIN SYRINGE 1CC/31GX5/16 ) 31G X 5/16 1 ML Misc USE EVERY DAY 1 Active nitroglycerin 0.4 MG SL tablet ONE TABLET UNDER TONGUE NEEDED FOR CHEST PAIN EVERY 5 MINUTES 1 Active semaglutide 2 MG/1.5ML injection (PEN)Indications:U ncontrolled type 2 diabetes mellitus with hyperglycemia ([facility]) Inject 1 mg into the skin every 7 days. 6 pen 1 Active cetirizine (ZYRTEC ALLERGY) 10 MG tabletIndications: Rhinorrhea Take 1 tablet (10 mg total) by mouth daily. 30 tablet 2 2 Active donepezil (ARICEPT) 10 MG TabIndications:MCI (mild cognitive impairment) Take 1 tablet (10 mg total) by mouth nightly at bedtime. 30 tablet 9 2 Active sertraline (ZOLOFT) 100 MG tabletIndications: Current mild episode of major depressive disorder, unspecified whether recurrent (CMS/HCC) TAKE 1 TABLET(100 MG) BY MOUTH DAILY 90 tablet 1 2 Active fluticasone-umecli dinium-vilanterol (TRELEGY) 100-62.5-25 MCG/INH AEROSOL POWDER, BREATH ACTIVATED Active losartan (COZAAR) 100 MG tabletIndications: Proteinuria Take 1 tablet (100 mg total) by mouth daily. 90 tablet 1 2 Active insulin degludec (TRESIBA FLEXTOUCH) 200 UNIT/ML injection (PEN)Indications:U ncontrolled type 2 diabetes mellitus with hyperglycemia ([facility]) Take 50 units daily. 27 mL 1 2 Active metFORMIN ER (GLUCOPHAGE-XR) 500 MG 24 hr tabletIndications: Type 2 diabetes mellitus without complication, with long-term current use of insulin ([facility]) TAKE 1 TABLET(500 MG) BY MOUTH DAILY WITH BREAKFAST 30 tablet 2 2 Active fluticasone propionate (FLONASE) 50 MCG/ACT nasal sprayIndications:A llergic rhinitis, unspecified seasonality, unspecified trigger SHAKE LIQUID AND USE 2 SPRAYS IN EACH NOSTRIL DAILY 48 g 2 3 Active zolpidem (AMBIEN) 10 MG tabletIndications: Primary insomnia TAKE 1 TABLET(10 MG) BY MOUTH EVERY NIGHT AT BEDTIME 30 tablet 2 3 Active carvedilol (COREG) 3.125 MG tabletIndications: Coronary artery disease involving habematolel coronary artery of habematolel heart without angina pectoris TAKE 1 TABLET BY MOUTH TWICE DAILY 200 tablet 2 3 Active famotidine (PEPCID) 40 MG tabletIndications: Gastroesophageal reflux disease without esophagitis TAKE 1 TABLET BY MOUTH DAILY 100 tablet 2 3 Active atorvastatin (LIPITOR) 40 MG tabletIndications: Hyperlipidemia, unspecified hyperlipidemia type TAKE 1 TABLET BY MOUTH DAILY 100 tablet 2 3 Active montelukast (SINGULAIR) 10 MG tabletIndications: Allergic rhinitis, unspecified seasonality, unspecified trigger Take 1 tablet (10 mg total) by mouth nightly at bedtime. 30 tablet 2 3 Active empagliflozin (JARDIANCE) 10 MG tabletIndications: Type 2 diabetes mellitus with microalbuminuria, with long-term current use of insulin ([facility]),Heart failure with reduced ejection fraction ([facility]) Take 1 tablet (10 mg total) by mouth daily. 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 ([facility]) 05/06/2022 Current mild episode of wandy r depressive disorder, unspecified whether recurrent 05/11/2021 Cerebral aneurysm, nonruptured ([facility]) 021 Saccular aneurysm ([facility]) 02/25/2021 Alzheimer disease ([facility]) 12/03/2020 ACS (acute coronary syndrome) ([facility]) 10/08/2020 Diabetes ([facility]) 10/08/2020 Eczema 10/08/2020 Tobacco use 10/08/2020 Coronary artery disease invo lving coronary bypass graft of habematolel heart without angina pectoris 10/08/2020 Pulmonary emphysema, unspeci fied emphysema type ([facility]) 10/08/2020 Heart failure with reduced e jection fraction ([facility]) 10/08/2020 Anemia 09/23/2020 Atrial fibrillation ([facility]) 09/23/2020 Depression 09/23/2020 Essential hypertension 09/23/2020 Hyperkalemia 09/23/2020 Hyperlipidemia 09/23/2020 Hyponatremia 09/23/2020 Ischemic cardiomyopathy 09/23/2020 Leukocytosis 09/23/2020 Pulmonary nodules 09/23/2020 Atherosclerosis of coronary artery 09/06/2020 Overview (10/08/2020): Added automatically from request for surgery [id number] Smokers' cough ([facility]) 07/08/2020 BMI 27.0-27.9,adult 06/04/2019 SANJU on CPAP 06/04/2019 Cigarette nicotine dependence without complicati on 06/04/2019 Insomnia 09/28/2018 Type 2 diabetes mellitus wit hout complication, with long-term current use of insulin ([facility]) 09/28/2018 Hyperlipidemia associated wi th type 2 diabetes mellitus ([facility]) 09/28/2018 Anxiety 09/28/2018 Gastroesophageal reflux disease without esophagi tis 09/28/2018 Coronary artery disease invo lving habematolel coronary artery of habematolel heart without angina pectoris 08/16/2017 History of coronary artery stent placement 08/16 Immunizations Name Administration Dates Next Due Fluzone High Dose - >Age 65 (Prefilled Syringe) 02/24/2022,02/25/2021,04/08/2020,2019 PFIZER COVID-19 (ORIGINAL FORMULATION, PURPLE CAP) mRNA, LNP-S, PF, 30 MCG/0.3 ML DOSE 06/28/2020 Pneumococcal (Pneumovax 23) 05/11/2021 Pneumococcal (Prevnar 13) 06/04/2019 Tdap (Adacel) 06/04/2019 Family History Medical History Relation Comments Cancer Brother Lung Heart Attack Father Heart Disease Father No Known Problems Maternal Aunt No Known Problems Maternal Grandfather No Known Problems Maternal Grandmother No Known Problems Maternal Uncle Cancer Mother Lung No Known Problems Paternal Aunt No Known Problems Paternal Grandfather No Known Problems Paternal Grandmother No Known Problems Paternal Uncle No Known Problems Sister Relation Status Comments Brother Father Maternal Aunt Maternal Grandfather Maternal Grandmother Maternal Uncle Mother Paternal Aunt Paternal Grandfather Paternal Grandmother Paternal Uncle Sister Social History Tobacco Use Types Packs/Day Years Used Date Smoking Tobacco: Every Day Cigarettes 0.5 54 Smokeless Tobacco: Never Tobacco Cessation:Ready to Q uit: Yes; Counseling Given: Yes Comments:Patient would like to quit , Provider to licensed mental health counselor Alcohol Use Standard Drinks/Week Comments No 0 (1 standard drink = 0.6 oz pur e alcohol) AUDIT-C Answer Date Recorded Frequency of Alcohol Consumption Never 09/28/2018 Average Number of Drinks Not on file 019 Frequency of Binge Drinking Not on file 09/01 PHQ-2 Answer Date Recorded Patient Health Questionnaire-2 Score 0 05/06/2022 Sex and Gender Information Value Date Recorded Sex Assigned at Not on file Legal Sex Male 7:52 PM CDT Gender Identity Not on file Sexual Orientation Not on file Occupation Industry Job Start Date Job End Date Not on file Not on file Not on file Not on file Last Filed Vital Signs Vital Sign Reading Time Taken Comments Blood Pressure 128/66 06/11/2022 9:22 AM LIFE ASSURANCE REPRESENTATIVE Pulse 64 06/11/2022 9:22 AM LIFE ASSURANCE REPRESENTATIVE Temperature 36.2 C (97.2 F) 06/11/2022 9:22 AM LIFE ASSURANCE REPRESENTATIVE Respiratory Rate 16 06/11/2022 9:22 AM LIFE ASSURANCE REPRESENTATIVE Oxygen Saturation 93% 06/11/2022 9:22 AM LIFE ASSURANCE REPRESENTATIVE Inhaled Oxygen Concentration - - Weight 83.7 kg (184 lb 8 oz) 06/11/2022 9:22 AM LIFE ASSURANCE REPRESENTATIVE Height 175.9 cm (5' 9.25 ) 06/11/2022 9:22 AM CS T Body Mass Index 27.05 06/11/2022 9:22 AM LIFE ASSURANCE REPRESENTATIVE Plan of Treatment Health Maintenance Due Date Last Done Comments ASCVD Statin 1948 Kidney Health Evaluation 1948 PHQ-2 (Physician [place]) 1960 Zoster Vaccines (1 of 2) 1998 Annual Medicare Wellness Visit 2013 Diabetes: Retinopathy Eye Exam 11/11/2022 11/11/2020 Hemoglobin A1C 12/09/2022 06/11/2022, 01/31, 11/24/2021, Additional history exists ASCVD LDL 2023 2022, 03/03, 04/01/2020, Additional history exists Lipid Panel 2023 2022, 03/03, 09/02/2020, Additional history exists RSV Immunization or 60+ Years (1 - 1-dose 75+ series) 2023 COVID-19 Vaccine ( season) 2024 07/25/2020, 06/28/2020 Influenza Adult (#1) 2024 02/24/2022, 02/25/2021, 04/08/2020, Additional history exists PHQ-2 (Physician [place]) 05/02/2024 DTaP, Tdap and Td Vaccines (2 - Td or Tdap) 06/04/2029 06/04/2019 Colorectal Cancer Screening Colonoscopy (10 Years) Discontinued 09/05/2015 Hepatitis C Completed 04/01/2020 Pneumococcal Vaccine: 65+ Years Completed 05/11/2021, 06/04/2019 Meningococcal B Vaccine Aged Out No l onger eligible based on patient's age to complete this topic Meningococcal Vaccine Aged Out No mel rolf eligible based on patient's age to complete this topic RSV Immunizations Under 20 Months Aged Out No longer eligible based on patient's age to complete this topic Procedures Procedure Name Priority Date/Time Associated Diagnosis Comments HEMOGLOBIN, GLYCOSYLATED Routine 06/11/2022 Type 2 diabetes mellitus with microalbuminuria, with long-term current use of insulin ([facility]) LIPID PANEL Routine 2022 11:12 AM LIFE ASSURANCE REPRESENTATIVE Type 2 diabetes mellitus without complication, with long-term current use of insulin ([facility]) Hyperlipidemia, unspecified hyperlipidemia type DIABETIC RETINOPATHY EXAM (NEGATIVE)(SCAN ORDER) Routine 11/11/2020 HEPATITIS C ANTIBODY 04/01/2020 1:43 PM LIFE ASSURANCE REPRESENTATIVE COLONOSCOPY GENERIC (SCAN ORDER) Routine 09/05/2015 from Last 3 Months or Most Recently Relevant to Health Maintenance Results * A1C (BACK OFFICE) (06/11/2022) HGB A1C 7.3 % [facility] 06/11/2022 us Sergey Helms DO LABORATORY Final Re sult [facility] [address] [place] [address], * LIPID PANEL (2022 11:12 AM LIFE ASSURANCE REPRESENTATIVE) CHOLESTEROL 118 <200 MG/DL 2022 10:50 PM LIFE ASSURANCE REPRESENTATIVE [facility] TRIGLYCERIDES 135 <150 MG/DL 2022 10:[address] [facility] HDL 42 >40 MG/DL 2022 10:50 PM LIFE ASSURANCE REPRESENTATIVE [facility] LDL-C 49 <100 MG/DL 2022 10:50 PM LIFE ASSURANCE REPRESENTATIVE [facility] VLDL CALCULATION 27 5 - 28 MG/DL 2022 10:50 PM LIFE ASSURANCE REPRESENTATIVE [facility] CHOL/HDL RATIO 2.8 0.0 - 4.0 2022 10:50 PM LIFE ASSURANCE REPRESENTATIVE [facility] LDL/HDL 1.2 0.41 - 2.13 2022 10:50 PM LIFE ASSURANCE REPRESENTATIVE [facility] NON HDL CHOLESTEROL 76 <140 MG/DL 2022 10:50 PM LIFE ASSURANCE REPRESENTATIVE [facility] 2022 11:1 2 AM LIFE ASSURANCE REPRESENTATIVE Sergey Helms DO LABORATORY Final Re sult [facility] NEILSENHUJunito TACOMA [address] [place] [address], [place] [phone] * DIABETIC RETINOPATHY EXAM (NEGATIVE)(SCAN) (11/11/2020) us Documents Scanned SCANNING Final Result HS ONBASE * HEPATITIS C ANTIBODY (04/01/2020 1:43 PM LIFE ASSURANCE REPRESENTATIVE) HEPATITIS C AB <0.1 0.0 - 0.9 s/co ratio [facility] 1 Comment: Negative: < 0.8 Indeterminate: 0.8 - 0.9 Positive: > 0.9 The CDC recommends that a positive HCV antibody result be followed up with a HCV Nucleic Acid Amplification test (879885). 04/01/2020 1:43 PM LIFE ASSURANCE REPRESENTATIVE 04/01/2020 Narrative [facility] - 04/02/2020 12:09 PM LIFE ASSURANCE REPRESENTATIVE Performed at: - [facility] [address] [id number] Research/Program Director: Luis Childers PhD, Phone: [phone] us Sergey Helms DO LABORATORY Final Re sult [facility] [address] [place] [address] [facility] 1 * COLONOSCOPY (09/05/2015) us Documents Scanned SCANNING Edited Result - Final Performing Organization Address City/[facility]/ZIP Co de Phone Number [facility] [place] from Last 3 Months or Most Recently Relevant to Health Maintenance Insurance Care Teams Computer Support Specialist Relationship Specialty Start Date End Date Sergey Helms DO [address] [place] [id number] PCP - General FAMILY PRACTICE 09/28/18
--- OUTSIDE RECORDS SUMMARY | 2024-06-25 12:54 | XMS_ITS | Encounter Summary ---
Author Organization [facility] Address [address] [place] [address] Care Team Providers Care Substation Operator Conversion Name Role Phone Sergey Helms Ruben CASTELLANO Primary Care Provider + Encounter Details Date Type Department Care Team (Late st Contact Info) Description 10/19/2021 Tank Top TVhart Message Enc [facility] Medical Group Neurology Speciality Clinic - [address] [place] [address] Vishal Infante MD [address] [place] [phone] Blood test Social History Tobacco Use Types Packs/Day Years Used Date Smoking Tobacco: Every Day Cigarettes 0.5 54 Smokeless Tobacco: Never Comments:Patient would like to quit , Provider to treatment counselor Alcohol Use Standard Drinks/Week Comments No 0 (1 standard drink = 0.6 oz pur e alcohol) AUDIT-C Answer Date Recorded Frequency of Alcohol Consumption Never 09/28/2018 Average Number of Drinks Not on file 019 Frequency of Binge Drinking Not on file 09/01 PHQ-2 Answer Date Recorded PHQ-2 Score - If the patient scores above 3, please move on to questions 3-9 0 05/11/2021 Sex and Gender Information Value Date Recorded Sex Assigned at Not on file Legal Sex Male 7:52 PM CDT Gender Identity Not on file Sexual Orientation Not on file Occupation Industry Job Start Date Job End Date Not on file Not on file Not on file Not on file COVID-19 Exposure Response Date Recorded In the last 10 days, have yo u been in contact with someone who was confirmed or suspected to have Coronavirus/COVID-19? No / Unsure 10/01/2021 11:19 AM CDT documented as of this encounter Plan of Treatment Not on file documented as of this encounter Visit Diagnoses Not on filedocumented in this encounter Additional Health Concerns Assessment Noted Time PHQ-9 Depression Total Score: 0 05/11/19 22 1:55 PM PLASTER PATTERN CASTER documented as of this encounter Care Teams Substation Operator Conversion Relationship Specialty Start Date End Date Sergey Helms DO [address] [place] [address] PCP - General FAMILY PRACTICE 09/28/18 documented as of this encounter
--- OUTSIDE RECORDS SUMMARY | 2024-06-25 12:54 | XMS_ITS | Encounter Summary ---
Author Organization [facility] Address [address] [place] [address] Care Team Providers Care Home Care Scheduler Name Role Phone Sergey Helms Ruben CASTELLANO Primary Care Provider + Encounter Details Date Type Department Care Team (Late st Contact Info) Description 10/07/2021 MyChart Message Enc [facility] Medical Group Neurology Speciality Clinic - [address] [place] [address] Vishal Infante MD [address] [place] [phone] Blood test Social History Tobacco Use Types Packs/Day Years Used Date Smoking Tobacco: Every Day Cigarettes 0.5 54 Smokeless Tobacco: Never Comments:Patient would like to quit , Provider to residential counselor Alcohol Use Standard Drinks/Week Comments No [...] Total Score: 0 05/11/19 22 1:55 PM AQUATIC HABITAT BIOLOGIST documented as of this encounter Care Teams Home Care Scheduler Relationship Specialty Start Date End Date Sergey Helms DO [address] [place] [id number] PCP - General FAMILY PRACTICE 09/28/18 documented as of this encounter
--- OUTSIDE RECORDS SUMMARY | 2024-06-25 12:54 | XMS_ITS | Clinical Summary ---
Author Organization [facility] Address [address] [place] [address] Care Team Providers Care Project Construction Manager Name Role Phone Federico Watt MD Primary Care Provider [phone] [facility],non-owned Affiliates and Associated Physician Practices is amultiple site organization consisting of ambulatory clinics and hospital sitesin [place], [place], [place] and [place]. This disclosure is being madepursuant to the Care Everywhere program and may not contain all information available regarding this patient. Last updated 18.[facility] [employer] Social History Tobacco Use Types Packs/Day Years Used Date Smoking Tobacco: Never Assessed Sex and Gender Information Value Date Recorded Sex Assigned at Not on file Gender Identity Not on file Sexual Orientation Not on file Plan of Treatment Health Maintenance Due Date Last Done Comments HEPATITIS C SCREENING 04/01/1966 DTAP/TDAP/TD VACCINES (1 - Tdap) 1967 PNEUMOCOCCAL VACCINE 50+ (1 of 1 - PCV) 1998 ZOSTER VACCINE (1 of 2) 1998 Respiratory Syncytial Virus (RSV) Vaccine Pt: or over 60 yrs (1 - 1-dose 75+ series) 2023 COVID-19 VACCINE (2 - 2023-2 5 season) 2024 06/28/2020 INFLUENZA VACCINE (#1) 2024 DEPRESSION SCREENING 05/02/2024 MEDICARE AWV CALENDAR YEAR 2024 HEPATITIS B VACCINE Aged Out No longe r eligible based on patient's age to complete this topic HIB VACCINE Aged Out No longer eligi ble based on patient's age to complete this topic HPV VACCINE Aged Out No longer eligi ble based on patient's age to complete this topic MENINGOCOCCAL (Group B) VACCINE Aged Out No longer eligible based on patient's age to complete this topic MENINGOCOCCAL VACCINE Aged Out No mel rolf eligible based on patient's age to complete this topic Care Teams Project Construction Manager Relationship Specialty Start Date End Date Federico Watt MD [address] [place] [phone] PCP - General 01/08/22
--- OUTSIDE RECORDS SUMMARY | 2024-06-25 12:54 | XMS_ITS | Encounter Summary ---
Author Organization [facility] Address [address] [place] [address] Care Team Providers Care Professor Of Kinesiology Name Role Phone Sergey Helms DO Primary Care Provider + Encounter Details Date Type Department Care Team (Late st Contact Info) Description 03/09/2021 Discoverablest Message Enc [facility] Medical Group Family & Internal Medicine [facility] [address] [place] [address] Sergey Helms DO [address] [place], [place] [phone] Medication Questions Social History Tobacco Use Types Packs/Day Years Used Date Smoking Tobacco: Every Day Cigarettes 0.5 54 Smokeless Tobacco: Never Comments:Patient would like to quit , Provider to application counselor Alcohol Use Standard Drinks/Week Comments No 0 (1 standard drink = 0.6 oz pur e alcohol) AUDIT-C Answer Date Recorded Frequency of Alcohol Consumption Never 09/28/2018 Average Number of Drinks Not on file 019 Frequency of Binge Drinking Not on file 09/01 PHQ-2 Answer Date Recorded PHQ-2 Score - If the patient scores above 3, please move on to questions 3-9 0 02/25/2021 Sex and Gender Information Value Date Recorded Sex Assigned at Not on file Legal Sex Male 7:52 PM CDT Gender Identity Not on file Sexual Orientation Not on file Occupation Industry Job Start Date Job End Date Not on file Not on file Not on file Not on file COVID-19 Exposure Response Date Recorded In the last month, have you been in contact with someone who was confirmed or suspected to have Coronavirus / COVID-19? No / Unsure 02/25/2021 11:22 AM CDT documented as of this encounter Progress Notes * Sergey Helms DO - 03/11/2021 9:24 AM CST Please triage; I did see him recently. His A1c is very high; we made adjustments at last OV. T DESIGNER documented in this encounter Plan of Treatment Not on file documented as of this encounter Visit Diagnoses Not on filedocumented in this encounter Additional Health Concerns Assessment Noted Time PHQ-9 Depression Total Score: 9 02/26/20 21 12:09 PM CDT documented as of this encounter Care Teams Professor Of Kinesiology Relationship Specialty Start Date End Date Sergey Helms DO [address] [place] [id number] PCP - General FAMILY PRACTICE 09/28/18 documented as of this encounter
--- OUTSIDE RECORDS SUMMARY | 2024-06-25 12:54 | XMS_ITS | Encounter Summary ---
Author Organization [facility] Address [address] [place] [address] Care Team Providers Care Elementary Esl Teacher Name Role Phone Sergey Helms Ruben CASTELLANO Primary Care Provider + Encounter Details Date Type Department Care Team (Late st Contact Info) Description 10/08/2021 Vigilenthart Message Enc [facility] Medical Group Neurology Speciality Clinic - [address] [place] [address] Vishal Infante MD [address] [place] [address] Blood test Social History Tobacco Use Types Packs/Day Years Used Date Smoking Tobacco: Every Day Cigarettes 0.5 54 Smokeless Tobacco: Never Comments:Patient would like to quit , Provider to director of group counseling program Alcohol Use Standard Drinks/Week Comments No 0 [...] Total Score: 0 05/11/19 22 1:55 PM SCHOOL BUSINESS MANAGER documented as of this encounter Care Teams Elementary Esl Teacher Relationship Specialty Start Date End Date Sergey Helms DO [address] [place] [address] PCP - General FAMILY PRACTICE 09/28/18 documented as of this encounter
--- OUTSIDE RECORDS SUMMARY | 2024-06-25 12:54 | XMS_ITS | Referral Summary ---
Author Organization [facility] Address [address] [place] [address] Care Team Providers Care Piece Jobber Name Role Phone Federico Watt MD Primary Care Provider [phone] Source Comments [facility],non-owned Affiliates and Associated Physician Practices is amultiple site organization consisting of ambulatory clinics and hospital sitesin [place], [place], [place] and [place]. This disclosure is being madepursuant to the Care Everywhere program and may not contain all information available regarding this patient. Last updated 18.[facility] [employer] Social History Tobacco Use Types Packs/Day Years Used Date Smoking Tobacco: Never Assessed Sex and Gender Information Value Date Recorded Sex Assigned at Not on file Gender Identity Not on file Sexual Orientation Not on file Plan of Treatment Not on file Care Teams Piece Jobber Relationship Specialty Start Date End Date Federico Watt MD [address] [place] [address] PCP - General 01/08/22
--- OUTSIDE RECORDS SUMMARY | 2024-06-25 12:54 | XMS_ITS | Encounter Summary ---
Author Organization [facility] Address [address] [place] [address] Care Team Providers Care Mortgage Clerk Name Role Phone Sergey Helms DO Primary Care Provider + Encounter Details Date Type Department Care Team (Late st Contact Info) Description 10/27/2022 myZamanahart Message Enc [facility] - [facility] [address] [place], [place] [id number] [employer], [facility] Provider Air Quality Message Social History Tobacco Use Types Packs/Day Years Used Date Smoking Tobacco: Every Day Cigarettes 0.5 54 Smokeless Tobacco: Never Comments:Patient would like to quit , Provider to genetic counsellor Alcohol Use Standard Drinks/Week Comments No 0 [...] file Not on file Not on file documented as of this encounter Plan of Treatment Not on file documented as of this encounter Visit Diagnoses Not on filedocumented in this encounter Additional Health Concerns Assessment Noted Time PHQ-9 Depression Total Score: 12 022 9:55 AM CDT documented as of this encounter Care Teams Mortgage Clerk Relationship Specialty Start Date End Date Sergey Helms DO [address] [place] [address] PCP - General FAMILY PRACTICE 09/28/18 documented as of this encounter
--- OUTSIDE RECORDS SUMMARY | 2024-06-25 12:55 | XMS_ITS | Encounter Summary ---
Author Organization [facility] Address [address] [place] [address] Care Team Providers Care Mica Plate Layer Hand Name Role Phone Scooter Sergey Miranda DO Primary Care Provider + Encounter Details Date Type Department Care Team (Late st Contact Info) Description 11/04/2021 VSoft Message [employer] [facility] Medical Group Family & Internal Medicine [address] [address] [employer], [facility] Provider Appointment Social History Tobacco Use Types Packs/Day Years Used Date Smoking Tobacco: Every Day Cigarettes 0.5 54 Smokeless Tobacco: Never Comments:Patient would like to quit , Provider to correctional counselor/case manager Alcohol Use Standard Drinks/Week Comments No 0 (1 standard drink = 0.6 oz pur e alcohol) AUDIT-C Answer Date Recorded Frequency of Alcohol Consumption Never 09/28/2018 Average Number of Drinks Not on file 019 Frequency of Binge Drinking Not on file 09/01 PHQ-2 Answer Date Recorded PHQ-2 Score - If the patient scores above 3, please move on to questions 3-9 6 11/04/2021 Sex and Gender Information Value Date Recorded [...] was confirmed or suspected to have Coronavirus/COVID-19? Unable to assess 11/04/2021 6:45 AM CDT documented as of this encounter Plan of Treatment Not on file documented as of this encounter Visit Diagnoses Not on filedocumented in this encounter Additional Health Concerns Assessment Noted Time PHQ-9 Depression Total Score: 16 022 11:11 AM CDT documented as of this encounter Care Teams Mica Plate Layer Hand Relationship Specialty Start Date End Date Sergey Helms DO [address] [place] [address] PCP - General FAMILY PRACTICE 09/28/18 documented as of this encounter
--- OUTSIDE RECORDS SUMMARY | 2024-06-25 12:55 | XMS_ITS | Referral Summary ---
Author Organization [facility] [address] [facility] [address] Address [address] [facility] [address] [place] [address] Care Team Providers Care Cashier Host/Hostess Name Role Phone Huang Mercado MD Unavailable Lesly Johnson NP Unavailable [phone] Vishal Infante MD Unavailable [phone] Federico Watt MD Primary Care Provider [phone] Allergies No known active allergies Medications atorvastatin (LIPITOR) 40 mg tablet TAKE 1 TABLET (40MG) BY ORAL ROUTE EVERY DAY AT BEDTIME 90 3 2 Active aspirin 81 mg tablet Take 1 tablet (81 mg total) by mouth daily Active carvedilol (COREG) 3.125 mg tablet TAKE 1 TABLET BY MOUTH TWO TIMES DAILY 180 tablet 3 8 Active insulin degludec (TRESIBA) 200 unit/mL (3 mL) pen for injection Active semaglutide (Ozempic) 0.25 mg or 0.5 mg(2 mg/1.5 mL) pen injector Inject under the skin Active fluticasone-ume clidin-vilanter (TRELEGY ELLIPTA) 100-62.5-25 mcg inhaler Inhale 1 puff daily 30 each 1 Active Additional Information Patient not taking.Reported on 02/02/2022 metFORMIN XR (GLUCOPHAGE XR) 500 mg 24 hr tablet Take 1 tablet (500 mg total) by mouth daily 1 Active sertraline (ZOLOFT) 100 mg tablet Take 1 tablet (100 mg total) by mouth daily Active losartan (COZAAR) 25 mg tablet Take 1 tablet (25 mg total) by mouth daily Active zolpidem (AMBIEN) 10 mg tabletIndicatio ns:Sleep-Onset Insomnia Take 1 tablet (10 mg total) by mouth nightly as needed for sleep Active donepeziL (ARICEPT) 5 mg tablet Take 1 tablet (5 mg total) by mouth nightly Active aspirin 325 mg tablet Take 1 tablet (325 mg total) by mouth daily 30 tablet 2 Active clopidogreL (PLAVIX) 75 mg tablet Take 1 tablet (75 mg total) by mouth daily 30 tablet 2 Active HumaLOG 200 unit/mL (3 mL) pen for injection INJECT 5 UNITS SUBCUTANEOUS THREE TIMES DAILY 3 Active Jardiance 10 mg tablet Take 1 tablet (10 mg total) by mouth daily 3 Active Active Problems Problem Noted Date Diagnosed Date Cerebral aneurysm, nonruptured 03/11/2021 Hx of CABG 11/25/2020 Ischemic cardiomyopathy 09/23/2020 Atrial fibrillation (CMS/HCC) 09/23/2020 Essential hypertension 09/23/2020 Hyperlipidemia 09/23/2020 Depression 09/23/2020 Pulmonary nodules 09/23/2020 Hyponatremia 09/23/2020 Hyperkalemia 09/23/2020 Anemia 09/23/2020 Leukocytosis 09/23/2020 Coronary artery disease invo lving [place] heart without angina pectoris 09/06/2020 Overview (09/09/2020): Added automatically from request for surgery [id number] CAD, multiple vessel 08/16/2017 History of coronary artery stent placement 08/16 Social History Tobacco Use Types Packs/Day Years Used Date Smoking Tobacco: Every Day Cigarettes Smokeless Tobacco: Never Tobacco Cessation:Ready to Q uit: Not Asked; Counseling Given: Not Answered Comments:Smoking History Packs/day: 1 Packs Alcohol Use Standard Drinks/Week Comments Yes 0 (1 standard drink = 0.6 oz pur e alcohol) Social Connection and Isolat ion Panel [NHANES] Answer Date Recorded In a typical week, how many times do you talk on the phone with family, friends, or neighbors? More than three times a week 09/09/2020 How often do you get togethe r with friends or relatives? More than three times a week 09/09/2020 How often do you attend chur ch or islam services? More than 4 times per year 09/09/2020 Active Member of Clubs or Organizations Not on f ile 09/09/2020 Attends Club or Organization Meetings Not on maryuri e 09/09/2020 Are you , , di vorced, , never , or living with a partner? 09/09/2020 Overall Financial Resource Strain (CARDIA) Answe r Date Recorded How hard is it for you to pa y for the very basics like food, housing, medical care, and heating? Not hard at all 09/09/2020 Hunger Vital Sign Answer Date Recorded Within the past 12 months, y ou worried that your food would run out before you got the money to buy more. Never true 09/10/19 21 Within the past 12 months, t he food you bought just didn't last and you didn't have money to get more. Never true 09/09/2020 PRAPARE - Transportation Answer Date Re corded In the past 12 months, has l ack of transportation kept you from medical appointments or from getting medications? No 08/30 In the past 12 months, has l ack of transportation kept you from meetings, work, or from getting things needed for daily living? No 09/09/2020 Housing Stability Vital Sign Answer Eduardo e Recorded In the last 12 months, was t here a time when you were not able to pay the mortgage or rent on time? No 09/09/2020 Number of Places Lived in the Last Year Not on f ile 09/09/2020 In the last 12 months, was t here a time when you did not have a steady place to sleep or slept in a fpc (including now)? No 09/09/2020 Sex and Gender Information Value Date Recorded Sex Assigned at Not on file Legal Sex Male 6:40 AM TECHNICIAN BIOLOGICAL HEALTH Gender Identity Not on file Sexual Orientation Not on file Last Filed Vital Signs Vital Sign Reading Time Taken Comments Blood Pressure 94/60 08/26/2022 9:08 AM CDT Pulse 85 08/26/2022 9:08 AM CDT Temperature 36.5 C (97.7 F) 07/06/2021 7:22 AM TECHNICIAN BIOLOGICAL HEALTH Respiratory Rate 21 07/06/2021 9:00 AM TECHNICIAN BIOLOGICAL HEALTH Oxygen Saturation 91% 08/26/2022 9:08 AM CDT Inhaled Oxygen Concentration - - Weight 86.2 kg (190 lb) 08/26/2022 9:08 AM CDT Height 180.3 cm (5' 11 ) 08/26/2022 9:08 AM CDT Body Mass Index 26.5 08/26/2022 9:08 AM CDT Plan of Treatment Not on file Insurance MEDICARE SOL[facility]IONS [facility] Address: [facility] [address] [place] [address] [facility] REF [facility] Address: [address] [address] [place] [address] [facility] REF [facility] Address: [address] [address] [place] [address] [facility] [employer] MEDICARE SOL[employer]IONS [facility] Address: [address] [address] [place] [address] Advance Directives For more information, please contact: [phone] * Full Code (Latest Code Status on File) Date Activated Date Inactivated Comments 07/06/2021 9:02 AM 07/06/2021 1:51 PM * Full Code Date Activated Date Inactivated Comments 09/06/2020 6:08 AM 09/24/2020 2:54 AM Care Teams Cashier Host/Hostess Relationship Specialty Start Date End Date Federico Watt MD [address] [place] [address] PCP - General Internal Medicine 08/26/22 [place] [address] [facility] [address] [place] [address] Surgeon Cardiothoracic Surgery 09/23/20 Lesly Johnson NP [address] [facility] [address] [place] [address] Nurse Practitioner Cardiovascular Disease 09/23/20 Vishal Infante MD [address] [facility] [address] [place] [address] Referring Physician Neurology 02/24/21
--- OUTSIDE RECORDS SUMMARY | 2024-06-25 12:55 | XMS_ITS | Clinical Summary ---
Author Organization [facility] [address] [facility] [address] [facility] [address] [place] [address] Care Team Providers Care Special Needs Nanny Name Role Phone Huang Mercado MD Unavailable Lesly Johnson NP Unavailable [phone] Vishal Infante MD Unavailable [phone] Federico Watt MD Primary Care Provider [phone] Allergies No known active allergies Medications atorvastatin [...] Leukocytosis 09/23/2020 Coronary artery disease invo lving [place] heart without angina pectoris 09/06/2020 Overview (09/09/2020): Added automatically from request for surgery [id number] CAD, multiple vessel 08/16/2017 History of coronary artery stent placement 08/16 Surgical History Surgery Date Site/Laterality Comments ANGIO [facility] EXECUTIVE DIRECTOR LEFT 07/06/2021 Left Medical History Medical History Date Comments Hx Other Medical Diabetes Type I I Hypertension Hypertension Coronary artery disease Diabetes mellitus (HCC) Social History Tobacco Use Types Packs/Day Years [...] often do you attend chur ch or sabianism services? More than 4 times per year [...] place to sleep or slept in a chcf (including now)? No 09/09/2020 Sex and Gender Information Value Date Recorded Sex Assigned at Not on file Legal Sex Male 6:40 AM CONSOLE MANAGER Gender Identity Not on file Sexual Orientation Not on file Obstetrics History Last Filed Vital Signs Vital Sign Reading Time Taken Comments Blood Pressure 94/60 08/26/2022 9:08 AM CDT Pulse 85 08/26/2022 9:08 AM CDT Temperature 36.5 C (97.7 F) 07/06/2021 7:22 AM CONSOLE MANAGER Respiratory Rate 21 07/06/2021 9:00 AM CONSOLE MANAGER Oxygen Saturation 91% 08/26/2022 9:08 AM CDT Inhaled Oxygen Concentration - - Weight 86.2 kg (190 lb) 08/26/2022 9:08 AM CDT Height 180.3 cm (5' 11 ) 08/26/2022 9:08 AM CDT Body Mass Index 26.5 08/26/2022 9:08 AM CDT Plan of Treatment Health Maintenance Due Date Last Done Comments Depression Screening 1948 Hepatitis C Screening 1948 Hepatitis B Screening 1966 Zoster Vaccine (1 of 2) 1998 Abdominal Aortic Aneurysm (A AA) Screen 2013 Well Visit 65+ 2013 Fall Risk Assessment 07/06/2022 07/06/2021 Covid-19 Vaccine (3 - 2023-2 5 season) 2024 07/25/2020, 06/28/2020 Influenza Vaccine (#1) 2024 , 06/04/2019, 01/12/2016, Additional history exists DTaP/Tdap/Td Vaccine (2 - Td or Tdap) 06/04/2029 06/04/2019 Pneumococcal vaccine 65+ Completed 05/11/2021, 07/2019 Insurance MEDICARE SOLUTIONS [facility] MEDIC[facility] Address: [address] [address] [place] [address] [facility]F [facility]IC[facility] Address: [address] [address] [place] [address] [facility] REF [facility] MEDIC[facility] Address: [address] [address] [place] [address] [facility] SECURE [employer] MEDICARE SOLUTIONS [facility] MEDICARE Address: [facility] [address] [place] [address] Advance Directives For more information, please contact: [phone] * Full Code (Latest Code Status on File) Date Activated Date Inactivated Comments 07/06/2021 9:02 AM 07/06/2021 1:51 PM * Full Code Date Activated Date Inactivated Comments 09/06/2020 6:08 AM 09/24/2020 2:54 AM Care Teams Special Needs Nanny Relationship Specialty Start Date End Date Federico Watt MD [address] [place] [address] [address] [place] [address] PCP - General Internal Medicine 08/26/22 [place] [address] [facility] [address] [address] Surgeon Cardiothoracic Surgery 09/23/20 Lesly Johnson NP [address] [place] [address] Nurse Practitioner Cardiovascular Disease 09/23/20 Vishal Infante MD [address] [place] [address] Referring Physician Neurology 02/24/21
--- OUTSIDE RECORDS SUMMARY | 2024-06-25 12:55 | XMS_ITS | Encounter Summary ---
Author Organization [facility] Address [address] [place] [address] Care Team Providers Care Vegetable Handler Name Role Phone Sergey Helms DO Primary Care Provider + Nimco Massey RN Unavailable [phone] Encounter Details Date Type Department Care Team (Late st Contact Info) Description 07/21/2020 [employer] Message Enc [facility] Medical Group Family & Internal Medicine [facility] [address] [place] [address] Sergey Helms DO [address] [place] [address] RE: Referral Request Social History Tobacco Use Types Packs/Day Years Used Date Smoking Tobacco: Every Day Cigarettes 0.5 54 Smokeless Tobacco: Never Comments:Patient would like to quit , Provider to debt and budget counselor Alcohol Use Standard Drinks/Week Comments No 0 (1 standard drink = 0.6 oz pur e alcohol) AUDIT-C Answer Date Recorded Frequency of Alcohol Consumption Never 09/28/2018 Average Number of Drinks Not on file 019 Frequency of Binge Drinking Not on file 09/01 PHQ-2 Answer Date Recorded PHQ-2 Score - If the patient scores above 3, please move on to questions 3-9 0 07/08/2020 Sex and Gender Information Value Date Recorded [...] have Coronavirus / COVID-19? No / Unsure 07/08/2020 12:48 PM TECHNICAL SUPPORT SPECIALIST documented as of this encounter Plan of Treatment Not on file documented as of this encounter Visit Diagnoses Not on filedocumented in this encounter Additional Health Concerns Infection Onset Date Last Indicated Resolved Time COVID-19 Rule Out 02/17/2021 02/17/2021 02/18/2021 1:04 AM CDT Assessment Noted Time PHQ-9 Depression Total Score: 2 07/09/19 1:12 PM TECHNICAL SUPPORT SPECIALIST documented as of this encounter Care Teams Vegetable Handler Relationship Specialty Start Date End Date Sergey Helms DO [address] [place] [address] PCP - General FAMILY PRACTICE 09/28/18 Nimco Massey, RN [address] [place] [address] Radiological Metallurgist (Ambulatory) REGISTERED NURSE 09/08/2004/21 documented as of this encounter
== END 2024-06-25 11:06 | disposition home or self-care (01) ==
PROVIDERS: PCP Internal Medicine; Visit Provider Internal Medicine
DX: R91.1 Solitary pulmonary nodule (principal); R91.8 Other nonspecific abnormal finding of lung field
CPT/HCPCS: 71250

== ENCOUNTER 2024-12-28 14:56 | Outpatient (CLI) | payer MEDICARE, SELFPAY ==
--- OUTSIDE RECORDS SUMMARY | 2024-12-24 06:15 | XMS_ITS | Continuity of Care Document ---
Author Organization [facility] Address [address] [place] [id number] Phone Care Team Providers Care Tool Engine Lathe Set Up Operator Name Role Phone Severiano Valladares DO Unavailable Unavailable Allergies, Adverse Reactions, Alerts Substance Reaction Status Criticality ezetimibe Heartburn Active No Information WARNIN allergy(ies) could not be collected because the type is not supported. Please contact the source practice for further details. Medications Medication Instructions Dosage Effective Dates (start - stop) Status Comments Lipitor 40 mg tablet TAKE 1 TABLET BY MOUTH DAILY - Active Mounjaro 5 mg/0.5 mL subcutaneous pen injector inject (5MG) by subcutaneous route every week 5 MG - Active INSULIN ASPART FLEXPEN INJ, 3ML ADMINISTER UP TO 50 UNITS UNDER THE SKIN DAILY - Active PANTOPRAZOLE 40MG TABLETS TAKE 1 TABLET BY MOUTH EVERY MORNING 30 MINUTES BEFORE BREAKFAST - Active Tresiba FlexTouch U-100 insulin 100 unit/mL (3 mL) subcutaneous pen ADMINISTER 25 UNITS UNDER THE SKIN EVERY NIGHT AT BEDTIME - Active 5 pens = 15 ml = 2 months Levemir U-100 Insulin 100 unit/mL subcutaneous solution inject 20 units by subcutaneous route daily. Titrating up by 2 units every 3 days until FBS below 130. Max daily dose 30 units. Dx: E11.9 - Active pen needle, diabetic 32 gauge x 5/32 USE TO INJECT HUMALOG SLIDING SCALE FOUR TIMES DAILY, UP TO 40 UNITS MAX AND TRESIBA ONCE DAILY 24 UNITS - Active tamsulosin 0.4 mg capsule Take one capsule by mouth daily - Active carvedilol 12.5 mg tablet TAKE 1 TABLET BY MOUTH TWICE DAILY - Active enalapril maleate 10 mg tablet TAKE 1 TABLET BY MOUTH DAILY WITH FOOD - Active finasteride 5 mg tablet Take one tablet by mouth daily - Active Praluent Pen 75 mg/mL subcutaneous pen injector Inject one pen every 2 weeks into thigh, abdomen, or back of arm rotating sites - Active Dexcom G6 Optometric Technician Use to test blood sugar e11.9 [facility] CODE: [address]-XE - Active Dexcom G6 Sensor device Use to test blood sugar e11.9 [facility] CODE: [address]-DN - Active Dexcom G6 Transmitter device Use to test blood sugar e11.9 [facility] CODE: [address]-CT - Active FreeStyle Lancets 28 gauge USE TO CHECK GLUCOSE 3 TIMES DAILY; E11.9 - Active Co Q-10 200 mg capsule 1 TABLET EVERY MORNING - Active Vitamin D3 25 mcg (1,000 unit) tablet take 1 tablet by oral route every day 1 tablet - Active Probiotic 10 billion cell capsule TAKE ONE TABLET DAILY - Active prasugrel 10 mg tablet take 1 tablet by oral route every day 10 MG - Active aspirin 81mg tablet,delayed release (DR/EC) Take one tablet by mouth twice per day - Active Problems Condition Type Effective Dates (start - stop) [facility] Status Comments No Known Problems Procedures Procedure Date Office Visit Established Moderate level of MDM Mgmt Complx Cond (MED-MRP only) 025 Facility fee for Clinic Visit 5 Office Visit Established Facility fee for Clinic Visit 4 Office Visit Established Complex E/M visit add on Office Visit Established Moderate level of MDM Facility fee for Clinic Visit 4 Office Visit Established Facility fee for Clinic Visit 3 Office Visit Established Office Visit Established Office Visit Established Office Visit Established Moderate level of MDM Facility fee for Clinic Visit 3 Office Visit Established Office Visit Established Facility fee for Clinic Visit 2 Office Visit Established Moderate level of MDM Facility fee for Clinic Visit 2 Office Visit Established Office Visit Established Facility fee for Clinic Visit 1 Office Visit Established Office Visit Established Facility fee for Clinic Visit 1 Office Visit Established Office Visit Established Facility fee for Clinic Visit 0 Office Visit Established Detailed/Moderate Complexity Facility fee for Clinic Visit 0 Office Visit Established Office Visit Established Facility fee for Clinic Visit 9 Office Visit Established Facility fee for Clinic Visit 9 Office Visit Established Detailed/Moderate Complexity Facility fee for Clinic Visit 9 Office Visit Established Office Visit Established Facility fee for Clinic Visit 8 Office Visit Established Office Visit Established Office Visit Established Facility fee for Clinic Visit 8 Office Visit Established Office Visit Established Facility fee for Clinic Visit 7 Office Visit Established Office Visit Established Facility fee for Clinic Visit 7 Office Visit Established Facility fee for Clinic Visit 7 Office Visit Established Office Visit Established Facility fee for Clinic Visit 6 Postoperative Followup Care Facility fee for Clinic Visit 6 Office Visit Established Facility fee for Clinic Visit 6 Destruction Of Skin Lesions Biopsy,each Added Lesion Destruct Premalignant Lesion; 1st Lesion Biopsy Of Skin Lesion Destruct Premalignant Lesion; 2-14 Office Visit Established Facility fee for Clinic Visit 6 Office Visit Established Office Visit Established Facility fee for Clinic Visit 6 Office Visit Established Facility fee for Clinic Visit 6 Office Visit Established Destruct Premalignant Lesion; 15 Or More Facility fee for Clinic Visit 6 Office Visit Established Office Visit Established Facility fee for Clinic Visit 5 Office Visit Established Destruction Of Skin Lesions Destruction Of Skin Lesions Destruction Of Skin Lesions Destruct Premalignant Lesion; 15 Or More Office Visit New Biopsy Of Skin Lesion Biopsy,each Added Lesion Facility fee for Clinic Visit 5 Office Visit Established Facility fee for Clinic Visit 5 Office Visit Established Office Visit Established Facility fee for Clinic Visit 5 Observation Care Discharge PRQ Card Stent W/Angio 1 Vsl Injection For Supravalvular Aortography Observation Care L Heart Artery/graft Angio Insert Ia Percut Device Myocardial Perfusion Imaging Office Visit Established Facility fee for Clinic Visit 5 Office Visit New Facility fee for Clinic Visit 5 Office Visit Established Facility fee for Clinic Visit 5 Office Visit Established Office Visit Established Office Visit Established Low To Moderate Facility fee for Clinic Visit 4 Bx Prostate; Needle/Bx Prostate; Needle/ punch Office Visit Established Low To Moderate Offic/outpt E&m Estab Mod-hi 2 14 Office Visit Established Low To Moderate Colonoscopy Flex; W/Colonoscopy Flex; W/ bx 1/ Ugi Endo; W/insrt GuUgi Endo; W/insrt Gu davi W Ugi Endo; W/bx 1/mxUgi Endo; W/bx 1/mx N Office Consultation Low Complexity Office Visit Established Low To Moderate Offic/outpt E&m Estab Mod-hi 2 13 Offic/outpt E&m Estab Mod-hi 2 13 Ekg Interp. Only;hospital Advance Directives Directive Yes / No Effective Date File Name No Information Encounters Encounter Description Practice Location Reason(s) For Visit Diagnoses Date Provider Providers Copied on Encounter [facility], [address] [place] [address], [facility], tel:[phone] [facility] No Information 5 [place] Cormorant. [address] [place] [address], [facility], [place]. tel:[phone] [facility], [address] [place] [address], [facility], tel: [phone] [facility] No Information 5 Anand Marin. [address] [place] [address], [facility], [place]. tel:[phone] [facility], [address] [place] [address], [facility], [place] tel:[phone] [facility] No Information 5 [place]. [address] [place] [address], [address], [place]. tel:[phone] [facility], [address] [place] [address], [facility], [place] tel:[phone] [facility] No Information 5 [place]. [address] [place] [address], [address], [place]. tel:[phone] [facility], [address] [place] [address], [facility], tel: [phone] [facility] No Information 5 Altagracia Hanley. [address] [place] [address], [id number]. tel:[phone] [facility], [address] [place] [address], [facility], tel: [phone] [facility] No Information 5 [facility]. [address] [place] [address], [address], [place]. tel:[phone] [facility], [address] [place] [address], [facility], tel: [phone] [facility] No Information 5 [facility]. [address] [place] [address], [address], . tel:[phone] Office Visit Established [facility], [address] [place] [address], [facility], tel: [phone] [facility] Malignant neoplasm of prostateType 2 diabetes mellitus without complicationsHype rlipidemia, unspecifiedEssent ial (primary) hypertensionAther osclerotic heart disease of [place] coronary artery without angina pectorisPeriphera l vascular disease, unspecifiedChroni c kidney disease, unspecified [address], [address], . tel:[phone] [facility], [address] [place] [address], [facility], [place] tel: [phone] [facility] No Information 5 Anand Jett. [address] [place] [address], [facility]. 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 [facility] [place], [facility], . tel:[phone] [facility], [address] [place] [address], [facility], tel: [phone] [facility] No Information 4 Michel Johnie. [address] [place] [address], [facility]. tel: [facility], [address] [place] [address], [facility], tel: [phone] [facility] No Information 4 Anand Marin. [facility] [place] [address], . tel: Office Visit Established [facility], [address] [place] [address], [facility], tel: [phone] [facility] Malignant neoplasm of prostateBenign prostatic hyperplasia with lower urinary tract symptomsPoor urinary stream 4 Anand Jett. [address] [place] [address], [facility]. tel: Office Visit Established [facility], [address] [place] [address], [facility], tel: [phone] [facility] Malignant neoplasm of prostateType 2 diabetes mellitus without complicationsHype rlipidemia, unspecifiedEssent ial (primary) hypertensionAther osclerotic heart disease of [place] coronary artery without angina pectorisChronic kidney disease, unspecified 4 [facility]. [address] [place] [address], [address], [place]. tel:[phone] Office Visit Established [facility], [address] [place] [address], [facility], tel: [phone] [facility] Type 2 diabetes mellitus without complicationsHype rlipidemia, unspecifiedEssent ial (primary) hypertensionAther osclerotic heart disease of [place] coronary artery without angina pectorisPeriphera l vascular disease, unspecifiedChroni c kidney disease, unspecified [address], [facility], . tel:[phone] Moderate level of MDM [facility], [address] [place] [address], tel: [phone] [facility] Atherosclerotic heart disease of [place] coronary artery without angina pectorisEssential (primary) hypertensionHyper lipidemia, unspecifiedType 2 diabetes mellitus without complicationsGast ro-esophageal reflux disease without esophagitisChroni c kidney disease, unspecifiedPeriph eral vascular disease, unspecified (I73.9)Other obesity due to excess caloriesBody mass index (BMI) 31.0-31.9, adult 4 Anand Marin. [address] [place] [address], . [phone] Office Visit Established [facility], [address] [place] [address], tel: [phone] [facility] Malignant neoplasm of prostateBenign prostatic hyperplasia with lower urinary tract symptomsPoor urinary stream Dec- 3 Anand Jett. [address] [place] [address]. [phone] Office Visit Established [facility], [address] [place] [address], tel: [phone] [facility] Cellulitis of left lower limbCough, unspecified [address], [address], [place]. tel:[phone] Office Visit Established [facility], [address] [place] [address], tel:[phone] [facility] Cellulitis of left lower limbContusion of left foot, subsequent encounter [address], [address], [place]. tel:[phone] Office Visit Established [facility], [address] [place] [address], [facility], tel: [phone] [facility] Malignant neoplasm of prostateType 2 diabetes mellitus with unspecified complicationsHype rlipidemia, unspecifiedEssent ial (primary) hypertensionChron ic kidney disease, unspecifiedChest pain, unspecified [address], [facility], . tel:[phone] [facility], [address] [place] [address], [facility], tel: [phone] [facility] No Information [address], [facility], . tel:[phone] Office Visit Established [facility], [address] [place] [address], [facility], tel: [phone] [facility] Type 2 diabetes mellitus without complicationsMali gnant neoplasm of prostateHyperlipi demia, unspecifiedEssent ial (primary) hypertensionAther osclerotic heart disease of [place] coronary artery without angina pectorisChronic kidney disease, unspecified [address], [facility], . tel:[phone] [facility], [address] [place] [address], [facility], tel: [phone] [facility] No Information 3 Michel Tania. [address] [place] [address], [facility], [place]. [phone] Moderate level of MDM [facility], [address] [place] [address], [facility], [place] tel: [phone] [facility] Atherosclerotic heart disease of [place] coronary artery without angina pectorisEssential (primary) hypertensionHyper lipidemia, unspecifiedType 2 diabetes mellitus without complicationsOthe r obesity due to excess caloriesBody mass index (BMI) 32.0-32.9, adult 3 Michel Taina. [address] [place] [address], [facility], . tel:[phone] [facility], [address] [place] [address], [facility], tel: [phone] [facility] No Information 2 [facility]. [address] [place] [address], [facility], . tel:[phone] Office Visit Established [facility], [address] [place] [address], [facility], tel: [phone] [facility] Chronic kidney disease, unspecifiedType 2 diabetes mellitus without complicationsHype rlipidemia, unspecifiedEssent ial (primary) hypertensionCoron nina atherosclerosis due to calcified coronary lesion [address], [facility], . tel:[phone] Office Visit Established [facility], [address] [place] [address], [facility], tel: [phone] [facility] Malignant neoplasm of prostate 2 Anand Jett. [address] [place] [address], [facility]. [phone] Office Visit Established [facility], [address] [place] [address], [facility], tel: [phone] [facility] Malignant neoplasm of prostateType 2 diabetes mellitus without complicationsHype rlipidemia, unspecifiedEssent ial (primary) hypertensionAther osclerotic heart disease of [place] coronary artery without angina pectorisChronic kidney disease, unspecified [address], [facility], . 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 [address] [place] [address], [facility], . tel:[phone] Office Visit Established [facility], [address] [place] [address], tel:[phone] [facility] Malignant neoplasm of prostateType 2 diabetes mellitus without complicationsHype rlipidemia, unspecifiedAthero sclerotic heart disease of [place] coronary artery without angina pectorisEssential (primary) hypertensionChron ic kidney disease, unspecified [address], [facility], . tel:[phone] Office Visit Established [facility], [address] [place] [address], tel:[phone] [facility] Malignant neoplasm of prostate 1 Anand Jett. [address] [place] [address], [facility]. tel:[phone] [facility], [address] [place] [address], [facility], tel:[phone] [facility] No Information [address], [facility], . tel:[phone] Office Visit Established [facility], [address] [place] [address], [facility], [place] tel:[phone] [facility] Type 2 diabetes mellitus with unspecified diabetic retinopathy with macular edemaType 2 diabetes mellitus without complicationsHype rlipidemia, unspecifiedEssent ial (primary) hypertensionAther osclerotic heart disease of [place] coronary artery without angina pectorisChronic kidney disease, unspecifiedEncoun ter for screening for malignant neoplasm of prostate [address], [facility], . tel:[phone] Office Visit Established [facility], [address] [place] [address], [facility], tel:[phone] [facility] Athscl heart disease of [place] coronary artery w/o ang pctrsEssential (primary) hypertensionHyper lipidemia, unspecifiedChroni c kidney disease, unspecifiedPeriph eral vascular disease, unspecifiedType 2 diabetes mellitus without complicationsBody mass index (BMI) 31.0-31.9, adultOther obesity due to excess caloriesGastro-es ophageal reflux disease without esophagitis 1 Anand Tania. [address] [place] [address], [facility], . tel:[phone] Office Visit Established [facility], [address] [place] [address], [facility], tel:[phone] [facility] Type 2 diabetes mellitus without complicationsHype rlipidemia, unspecifiedEssent ial (primary) hypertensionAthsc l heart disease of [place] coronary artery w/o ang pctrsChronic kidney disease, unspecified 0 [place]. [address] [place] [address], [facility], . tel:[phone] Office Visit Established [facility], [address] [place] [address], [facility], tel:[phone] [facility] Malignant neoplasm of prostate 0 Anand Jett. [address] [place] [address], [facility]. tel:[phone] Office Visit Established [facility], [address] [place] [address], [facility], tel:[phone] [facility] Type 2 diabetes w unsp diabetic rtnop w/o macular edemaType 2 diabetes mellitus without complicationsHype rlipidemia, unspecifiedEssent ial (primary) hypertensionAthsc l heart disease of [place] coronary artery w/o ang pctrsChronic kidney disease, unspecified [address], [facility], . tel:[phone] Detailed/Mode rate Complexity [facility], [address] [place] [address], [facility], tel: [phone] [facility] Athscl heart disease of [place] coronary artery w/o ang pctrs (I25.10)Hyperlipi demia, unspecified (E78.5)Essential (primary) hypertension 0 Gail Zamarripa. [address], [place], [facility]. tel:[phone] Office Visit Established [facility], [address] [place] [address], [facility], tel: [phone] [facility] Type 2 diabetes mellitus without complicationsHype rlipidemia, unspecifiedEssent ial (primary) hypertensionAthsc l heart disease of [place] coronary artery w/o ang pctrsChronic kidney disease, unspecified [address], [facility], . tel:[phone] Office Visit Established [facility], [address] [place] [address], [facility], tel: [phone] [facility] Gastro-esophageal reflux disease without esophagitis 9 Altagracia Hanley. [address] [place] [address], [id number]. tel:[phone] Office Visit Established [facility], [address] [place] [address], [facility], tel: [phone] [facility] Malignant neoplasm of prostate 9 Anand Jett. [address] [place], [place], [facility]. tel:[phone] Office Visit Established [facility], [address] [place] [address], [facility], [place] tel: [phone] [facility] Type 2 diabetes mellitus without complicationsHype rlipidemia, unspecifiedEssent ial (primary) hypertensionAthsc l heart disease of [place] coronary artery w/o ang pctrsChronic kidney disease, unspecified [address], [facility], . tel:[phone] Detailed/Mode rate Complexity [facility], [address] [place] [address], [facility], tel: [phone] [facility] Athscl heart disease of [place] coronary artery w/o ang pctrs (I25.10)Hyperlipi demia, unspecified (E78.5)Essential (primary) hypertensionPerip heral vascular disease, unspecified (I73.9)Occlusion and stenosis of unspecified carotid arteryOther obesity due to excess calories 9 Gail Zamarripa. [address], [place], [facility]. tel:[phone] Office Visit Established [facility], [address] [place] [address], [facility], tel: [phone] [facility] Type 2 diabetes mellitus without complicationsHype rlipidemia, unspecifiedEssent ial (primary) hypertensionAthsc l heart disease of [place] coronary artery w/o ang pctrsChronic kidney disease, unspecified [address], [facility], . tel:[phone] Office Visit Established [facility], [address] [place] [address], [facility], tel: [phone] [facility] Gastro-esophageal reflux disease without esophagitis 8 Altagracia Hanley. [address] [place] [address], [id number]. tel:[phone] Office Visit Established [facility], [address] [place] [address], [facility], tel: [phone] [facility] Type 2 diabetes mellitus without complicationsAge- related nuclear cataract, left eyeEssential (primary) hypertensionAthsc l heart disease of [place] coronary artery w/o ang pctrs [address], [facility], . tel:[phone] Office Visit Established [facility], [address] [place] [address], [facility], [place] tel: [phone] [facility] Malignant neoplasm of prostate 8 Anand Jett. [address] [place], [place], [facility]. tel:[phone] Office Visit Established [facility], [address] [place] [address], [facility], tel: [phone] [facility] Type 2 diab with prolif diab rtnop without mclr edema, r eyeType 2 diabetes mellitus without complicationsHype rlipidemia, unspecifiedEssent ial (primary) hypertensionAthsc l heart disease of [place] coronary artery w/o ang pctrs 8 Oh Severiano. [address] [place] [address], [address], . tel:[phone] Office Visit Established [facility], [address] [place] [address], [facility], tel: [phone] [facility] Essential (primary) hypertensionAthsc l heart disease of [place] coronary artery w/o ang pctrs (I25.10)Periphera l vascular disease, unspecified (I73.9)Hyperlipid emia, unspecified (E78.5) 7 Gail Zamarripa. [address] [place], [place], [facility]. tel:[phone] Office Visit Established [facility], [address] [place] [address], [facility], tel: [phone] [facility] Type 2 diabetes mellitus without complicationsHype rlipidemia, unspecifiedEssent ial (primary) hypertensionAthsc l heart disease of [place] coronary artery w/o ang pctrsChronic kidney disease, unspecified [address], [address], [place]. tel:[phone] Office Visit Established [facility], [address] [place] [address], [facility], tel: [phone] [facility] Gastro-esophageal reflux disease without esophagitis 7 Altagracia Hanley. [address] [place] [address], [id number]. tel:[phone] Office Visit Established [facility], [address] [place] [address], [facility], tel: [phone] [facility] Malignant neoplasm of prostateBenign prostatic hyperplasia with lower urinary tract sympPoor urinary stream 7 Anand Jett. [address] [place] [address], [facility]. tel:[phone] Referring Provider: Severiano Valladares , [address] [place], [address]. tel:[phone] Office Visit Established [facility], [address] [place] [address], [address], [place] tel: [phone] [facility] Malignant neoplasm of prostateType 2 diabetes mellitus with hyperglycemiaHype rlipidemia, unspecifiedEssent ial (primary) hypertensionAthsc l heart disease of [place] coronary artery w/o ang pctrs 7 Blaine العلي. [address] [place], [address], . tel:[phone] Office Visit Established [facility], [address] [place] [address], [address], tel: [phone] [facility] Hyperlipidemia, unspecifiedEssent ial (primary) hypertensionAthsc l heart disease of [place] coronary artery w/o ang pctrs 6 Patrick Adamson. [address] [place] [address], [id number]. tel:[phone] [facility], [address] [place] [address], [facility], tel: [phone] [facility] Cellulitis of face 6 Trinh Helton. [address] [place] [address], [facility]. tel:[phone] Office Visit Established [facility], [address] [place] [address], [facility], tel: [phone] [facility] Hyperlipidemia, unspecifiedEssent ial (primary) hypertensionAthsc l heart disease of [place] coronary artery w/o ang pctrsPeripheral vascular disease, unspecified 6 Patrick Adamson. [address] [place], [place], [id number]. tel:[phone] [facility], [address] [place] [address], [address], [place] tel: [phone] [facility] Ca in situ skin of left upper limb, including shoulder 6 Noris Vivas. [address] [place], [place], [place], [id number]. tel:[phone] Office Visit Established [facility], [address] [place] [address], [address], [place] tel: [phone] [facility] Neoplasm of unspecified behavior of other specified sitesActinic keratosisPersonal history of other malignant neoplasm of skin 6 Noris Vivas. [address] , [place], [id number]. tel:[phone] Office Visit Established [facility], [address] [place] [address], [address], [place] tel: [phone] [facility] Type 2 diabetes mellitus without complicationsHype rlipidemia, unspecifiedEssent ial (primary) hypertensionAther osclerosis of CABG, unsp, w unstable angina pectoris 6 Pa Severiano. [address] [place] [address], [address], [place]. tel:[phone] Office Visit Established [facility], [address] [place] [address], [address], [place] tel: [phone] [facility] Other esophagitisGastro -esophageal reflux disease with esophagitisEsopha geal obstruction 6 Altagracia Hanley. [address] [place], [place], [id number]. tel:[phone] Office Visit Established [facility], [address] [place] [address], [address], [place] tel: [phone] [facility] Malignant neoplasm of prostatePoor urinary streamEnlarged prostate with lower urinary tract symptoms 6 Anand Jett. [address] [place], [address]. tel:[phone] [facility], [address] [place] [address], [facility], tel: [phone] [facility] No Information 6 Nobis Sandra. [address], [place], [place], [id number]. tel:[phone] Office Visit Established [facility], [address] [place] [address], [facility], [place] tel: [phone] [facility] Actinic keratosisPersonal history of other malignant neoplasm of skin 6 Noris Vivas. [address], [place], [place], [id number]. tel:[phone] Office Visit Established [facility], [address] [place] [address], [facility], tel: [phone] [facility] Type 2 diabetes mellitus without complicationsHype rlipidemia, unspecifiedEssent ial (primary) hypertensionAthsc l heart disease of [place] coronary artery w/o ang pctrsPresence of aortocoronary bypass graft 5 Blaine اللعي. [address] [place] [address], [facility], . tel:[phone] Office Visit Established [facility], [address] [place] [address], [facility], tel: [phone] [facility] Hyperlipidemia, unspecifiedEssent ial (primary) hypertensionAthsc l heart disease of [place] coronary artery w/o ang pctrsPresence of aortocoronary bypass graft 5 Nobis Sandra. [address], [place], [id number]. tel:[phone] Office Visit Established [facility], [address] [place] [address], [facility], [place] tel: [phone] [facility] Mononeuritis Leg NosSPRAIN HIP & THIGH NOS 5 Kloeahmet Julio. [address], [place], [facility], . tel:[phone] [facility], [address] [place] [address], [facility], [place] tel: [phone] [facility] BSL MEAGHAN SKN FACE NEC/NOSCa In Situ Skin Face NecCa In Situ Scalp 5 Noris Vivas. [address], [place], [place], [id number]. tel:[phone] Office Visit New [facility], [address] [place] [address], [facility], tel: [phone] [facility] Unc Behav Amarjit SkinActinic KeratosisHx-skin Malignancy Nec 5 Noris Vivas. [address] [place], [place], [place], [id number]. tel:[phone] Referring Provider: Sandra Almazan, [address], [place], [place], [id number]. tel:[phone] Office Visit Established [facility], [address] [place] [address], [facility], [place] tel: [phone] [facility] Hyperlipidemia Nec/nosBenign HypertensionCOR ATH UNSP VSL NTV/GFT 5 Bettie Flores. [address] [place], [place], [id number]. tel:[phone] Office Visit Established [facility], [address] [place] [address], [facility], [place] tel: [phone] [facility] DMII WO CMP NT ST UNCNTRHyperlipide phoenix Nec/nosBenign HypertensionCOR ATH UNSP VSL NTV/GFT 5 Oh Severiano. [address] [place], [address], [place]. tel:[phone] Office Visit Established [facility], [address] [place] [address], [facility], [place] tel: [phone] [facility] Hyperlipidemia Nec/nosBenign HypertensionCOR ATH UNSP VSL NTV/GFT May-0 4-201 5 Nobis Sandra. [address] [place], [place], [id number]. tel: Observation Care Discharge [facility], [address] [place] [address], [facility], tel: [phone] [facility]/OP DMII WO CMP NT ST UNCNTRHyperlipide phoenix Nec/nosBenign HypertensionCOR ATH UNSP VSL NTV/GFT 0-201 5 Lydia Eyas. [address] [place], [place], [facility], [place]. tel: [facility], [address] [place] [address], [facility], tel: [phone] [facility]/OP CRNRY ATHRSCL NATVE VSSLCOR ATH D/T CALC COR LSNStricture Of Artery Jul-0 9 5 Lydia Eyas. [address] [place], [place], [facility], [place]. tel: Observation Care [facility], [address] [place] [address], [facility], [place] tel: [phone] [facility]/OP DMII WO CMP NT ST UNCNTRHyperlipide phoenix Nec/nosHypertensi on NosCRNRY ATHRSCL NATVE VSSLBenign HypertensionCOR ATH UNSP VSL NTV/GFT Jul-0 9-201 5 Lydia Eyas. [address] [place], [place], [facility], [place]. tel: [facility], [address] [place] [address], [facility], [place] tel: [phone] [facility]/OP Hypertension NosCRNRY ATHRSCL NATVE VSSLCOR ATH D/T CALC COR LSNStricture Of Artery Jul-0 9 5 Lydia Eyas. [address] [place], [facility], [place]. tel: [facility], [address] [place] [address], [facility], [place] tel: [phone] [facility]/OP Abnorm Electrocardiogram 5 Lydia Eyas. [address] [place], [place], [facility], [place]. tel:[phone] Office Visit Established [facility], [address] [place] [address], [facility], tel: [phone] [facility] OTHER ESOPHAGITISEsopha geal StrictureDYSPHAGI A NOS 5 Altagracia Hanley. [address] [place] [address], [id number]. tel:[phone] Office Visit New [facility], [address] [place] [address], [facility], [place] tel: [phone] [facility] DMI WO CMP NT ST UNCNTRLHyperlipid emia Nec/nosBenign HypertensionNONSP ABN INTRATHOR NEC 5 Lydia Eyas. [address] [place] [address], [facility], . tel:[phone] Referring Provider: Severiano Beckham[address], [facility]. tel:[phone] Office Visit Established [facility], [address] [place] [address], [facility], [place] tel: [phone] [facility] Malign Neopl Prostate 5 Fidencio Darrel. [address] [place] [address], [address]. tel:[phone] Office Visit Established [facility], [address] [place] [address], [facility], [place] tel: [phone] [facility] DMI WO CMP NT ST UNCNTRLHyperlipid emia Nec/nosCataract NosBenign Hypertension 4 Blaine العلي. [address] [place] [address], [facility], . tel:[phone] Office Visit Established [facility], [address] [place] [address], [facility], [place] tel: [phone] [facility] DMII WO CMP NT ST UNCNTRHyperlipide phoenix Nec/nosMacular Degeneration NosBenign Hypertension [address], [address], . tel:[phone] Office Visit Established Low To Moderate [facility], [address] [place] [address], [facility], tel: [phone] [facility] Malign Neopl ProstateWith Urinary Obstruction 4 Fidencio Rojo. [address] [place] [address], [facility]. tel:[phone] [facility], [address] [place] [address], [facility], tel: [phone] [facility] Without Urinary ObstructionElevat ed Psa 4 Fidencio Rojo. [address] [place] [address], [facility]. tel:[phone] Office Visit Established Low To Moderate [facility], [address] [place] [address], [facility], tel: [phone] [facility] Benign HypertensionHemat uria, unspecified 4 Oh [place]. [address] [place] [address], [address], [place]. tel:[phone] Offic/outpt E&m Estab Mod-hi 2 [facility], [address] [place] [address], [facility], tel: [phone] [facility] DM W/O Compl Type II NOSHyperlipidemia Nec/nosBenign Hypertension 4 Oh [place]. [address] [place] [address], [address], [place]. tel:[phone] Office Visit Established Low To Moderate [facility], [address] [place] [address], [facility], [place] tel: [phone] [facility] Esophagitis NecEsophageal StrictureDysphagi a, Unspecified 4 Altagracia Hanley. [address] [place] [address], [id number]. tel:[phone] [facility], [address] [place] [address], [facility], tel: [phone] [facility] Benign Neoplasm Lg BowelEsophagitis NecEsophageal StrictureNodular Prostate Without UrinaDysphagia, Unspecified 3 Altagracia Hanley. [address] [place] [address], [id number]. tel:[phone] Office Consultation Low Complexity [facility], [address] [place] [address], [facility], tel: [phone] [facility] Dysphagia, Unspecified 3 Sitter Annalise. [address] [place] [address], [id number]. tel:[phone] Office Visit Established Low To Moderate [facility], [address] [place] [address], [facility], tel: [phone] [facility] Bacteriuria In Preg, UnspecifiVomiting Alone [address], [facility], . tel:[phone] Offic/outpt E&m Estab Mod-hi 2 [facility], [address] [place] [address], [facility], tel: [phone] [facility] DM W/O Compl Type II NOSHyperlipidemia Nec/nosBenign HypertensionCereb ral Hem At 3 Oh [place]. [address] [place] [address], [facility], . tel:[phone] Offic/outpt E&m Estab Mod-hi 2 [facility], [address] [place] [address], [facility], tel: [phone] [facility] DM W/O Compl Type II NOSHyperlipidemia Nec/nosBenign HypertensionHx Nervous Sys Dis Nec [address], [facility], . tel:[phone] [facility], [address] [place] [address], [address], [place] tel: [phone] [facility] Head Injury Nos 2 Patrick Adamson. [address] [place] [address], [id number]. tel:[phone] [facility], [address] [place] [address], [facility], [place] tel: [phone] [facility] DM W/O Compl Type II NOSHyperlipidemia Nec/nosBenign HypertensionActin ic Keratosis 2 Oh Severiano. [address] [place] [address], [address], [place]. tel:[phone] [facility], [address] [place] [address], [facility], tel: [phone] [facility] DM W/O Compl Type II NOSHyperlipidemia Nec/nos 2 Oh Severiano. [address] [place] [address], [facility], [place]. tel:[phone] [place] [address], [address] [place] [address], [facility], [place] tel: [phone] [facility] Labyrinthitis NosDizziness And Giddiness 2 Oh Severiano. [address] [place] [address], [address], [place]. tel:[phone] [facility], [address] [place] [address], [facility], [place] tel: [phone] [facility] DM W/O Compl Type II NOSHyperlipidemia Nec/nosBenign Hypertension 1 Oh Severiano. [address] [place] [address], [facility], [place]. tel:[phone] [facility], [address] [place] [address], [facility], [place] tel: [phone] [facility] DM W/O Compl Type II UncntrdHyperlipid emia Nec/nosBenign Hypertension [address], [facility], . tel:[phone] [facility], [address] [place] [address], [facility], tel: [phone] [facility] DM W/O Compl Type II NOSBenign HypertensionHyper lipidemia Nec/nosAbnormal Loss Of Weight [address], [facility], [place]. tel:[phone] [facility], [address] [place] [address], [facility], [place] tel: [phone] [facility] DM W/O Compl Type II NOS [address], [facility], . tel:[phone] [facility], [address] [place] [address], [facility], tel: [phone] [facility] Ca In Situ ScalpMal Amarjit Scalp/skin NeckActinic Keratosis Jan-3 0-200 6 No Information [facility], [address] [place] [address], [facility], [place] tel: [phone] [facility] Mal Amarjit Scalp/skin Neck Jan- 6 No Information [facility], [address] [place] [address], [facility], [place] tel: [phone] [facility] Rich Amarjit Scalp/skin Neck Jan- 3200 6 No Information [facility], [address] [place] [address], [facility], [place] tel: [phone] [facility] Actinic KeratosisMal Amarjit Scalp/skin NeckSeborrheic Keratosis Nec 6 No Information Family History Family Member Type Diagnosis Age At Onset No Information Immunizations Vaccine Date Status Comments influenza, injectable, quadrivalent, preservative free administered Note: FLUZONE TIFFANIE VALENT ; Source: New Immunization Record Payers Payer name Insurance type Covered constitution party ID Dinorah dumont(s) Medicare Part B (NGS) M [id number] Protecode C [id number] Social History Type Description Quantity Date Captured Comments Sex Male Smoking Status No Information Vital Signs Date / Time: Height Weight BMI Pulse Rate Blood Pressure Temperature Respiratory Rate Body Surface Area Head Circumference BMI percentile Pulse Ox Inhaled Ox 11:27 AM 70.00 in 217.00 lbs 31.1 3 kg/m eter (2) 60 /min 110/70 mm[Hg] 97.20 F 2.16 meter(2) 97 Chief Complaint And Reason For Visit No Information History Of Present Illness Encounter Date Complaint History Of Prese nt Illness No Information Instructions Date Instruction Additional Infor mation Zetia 10 mg daily waters s been prescribed for better cholesterol management as recent guidelines have changed. LDL goal of 55 or less is now recommended.Lipid panel for enzymes (fasting) will be rechecked on June 22. Metoprolol has been discontinued. Carvedilol 12.5 mg 1 tablet twice daily has been prescribed.Call if you have any symptomatic low blood pressures. Continue other medications. IF YOU DON'T HEAR AB OUT TEST RESULTS A WEEK AFTER TESTING IS COMPLETE, PLEASE CALL Related to Essential (primary) hypertension CONTINUE CURRENT MEDICATIONS Rel ated to Essential (primary) hypertension CONTINUE CURRENT MEDICATIONS WORK ON THE WEIGHT REDUCTION Assessments Type Assessment Date No Information
--- NOTE | ~2024-12-28 | CT_ITS ---
EXAMINATION: CTA brain DATE: 01/07/2025 17:01 CDT INDICATION: Vertebral aneurysm TECHNIQUE: Computed tomographic angiography (CTA) of the head was performed without and with 100 mL Omnipaque-350 intravenous contrast. The dose-length product was 1236.41 mGy-cm. Volume-rendered and maximum intensity projection 3D reconstructions of the intracranial arteries were created by the technologist on a separate workstation. COMPARISON: MRI of the brain dated 07/18/2015. And CT head dated 08/30/2023 FINDINGS: There is chronic encephalomalacia of the frontal lobes and anterior inferior aspect of the left temporal lobe. Generalized atrophy. No ventriculomegaly or midline shift. There are scattered mild periventricular and subcortical white matter changes, most likely related to small vessel ischemic disease (microangiopathy). There is intracranial atherosclerosis particularly involving the cavernous segments of the carotid arteries. No acute infarction, hemorrhage, mass or mass effect. There is mucosal thickening of the right maxillary sinus. Mastoids are pneumatized. No depressed skull fractures. There is a dominant right vertebral artery. 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 No enhancing masses are identified. IMPRESSION: 1. 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 2: Chronic encephalomalacia anterior inferior frontal lobes and left temporal lobe and pattern consistent with traumatic brain injury. Reviewed, dictated and finalized at location O. IMPRESSION: 1. 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 2: Chronic encephalomalacia anterior inferior frontal lobes and left temporal l obe and pattern consistent with traumatic brain injury.
--- OUTSIDE RECORDS SUMMARY | 2024-12-28 15:02 | XMS_ITS | Encounter Summary ---
Author Organization [facility] Address [address] [place] [id number] Care Team Providers Care Baker Bread Name Role Phone Sergey Helms DO Primary Care Provider + Nimco Massey RN Unavailable [phone] Encounter Details Date Type Department Care Team (Late st Contact Info) Description 07/21/2020 Qooplt Message Enc [facility] Family [facility] Internal Medicine [facility] [address] [place] [address] Sergey Helms DO [address] [place] [address] RE: Referral Request Social History Tobacco Use Types Packs/Day Years Used Date Smoking Tobacco: Every Day Cigarettes 0.5 54 Smokeless Tobacco: Never Comments:Patient would like to quit , Provider to student financial services counselor Alcohol Use Standard Drinks/Week Comments No [...] COVID-19? No / Unsure 07/08/2020 12:48 PM ADULT CARE PROVIDER documented as of this encounter Plan of Treatment Not on file documented as of this encounter Visit Diagnoses Not on filedocumented in this encounter Additional Health Concerns Infection Onset Date Last Indicated Resolved Time COVID-19 Rule Out 02/17/2021 02/17/2021 02/18/2021 1:04 AM CDT Assessment Noted Time PHQ-9 Depression Total Score: 2 07/09/19 1:12 PM ADULT CARE PROVIDER documented as of this encounter Care Teams Baker Bread Relationship Specialty Start Date End Date Sergey Helms DO [address] [place] [id number] PCP - General FAMILY PRACTICE 09/28/18 Nimco Massey, RN [address] [place] [address] [employer] (Ambulatory) REGISTERED NURSE 09/08/2004/21 documented as of this encounter
--- OUTSIDE RECORDS SUMMARY | 2024-12-28 15:02 | XMS_ITS | Clinical Summary ---
Author Organization [facility] Address [address] [place] [address] Care Team Providers Care Spinning Bath Person Name Role Phone GuillaumeaceSergey yoder Ruben CASTELLANO Primary Care Provider + Allergies No known active allergies Medications aspirin EC 81 MG tablet Take 81 mg by mouth daily. Active Insulin Pen Needle (PEN NEEDLES) 31G X 5 MM MiscIndications:Ty pe 2 diabetes mellitus without complication, with long-term current use of insulin ([facility]) Use as directed to inject insulin daily 100 each 3 9 Active CPAP DEVICE, DME, 1 Device by Does not apply route. Active Lancets MiscIndications:Ty pe 2 diabetes mellitus without complication, with long-term current use of insulin ([facility]) Check blood sugar three times daily 3 Container 11 0 Active Insulin Syringe-Needle U-100 (INSULIN SYRINGE 1CC/31GX5/16) 31G X 5/16 1 ML Misc USE EVERY DAY 1 Active nitroglycerin 0.4 MG SL tablet ONE TABLET UNDER TONGUE NEEDED FOR CHEST PAIN EVERY 5 MINUTES 1 Active semaglutide 2 MG/1.5ML injection (PEN)Indications:U ncontrolled type 2 diabetes mellitus with hyperglycemia ([facility]) Inject 1 mg into the skin [...] of major depressive disorder, unspecified whether recurrent TAKE 1 TABLET(100 MG) BY MOUTH DAILY 90 tablet 1 2 Active fluticasone-umecli dinium-vilanterol (TRELEGY) 100-62.5-25 MCG/INH AEROSOL POWDER, BREATH ACTIVATED Active losartan (COZAAR) 100 MG tabletIndications: Proteinuria Take 1 tablet (100 mg total) by mouth daily. 90 tablet 1 2 Active insulin degludec (TRESIBA FLEXTOUCH) 200 UNIT/ML injection (PEN)Indications:U ncontrolled type 2 diabetes mellitus with hyperglycemia ([facility]) Take 50 units daily. 27 mL 1 2 Active metFORMIN ER (GLUCOPHAGE-XR) 500 MG 24 hr tabletIndications: Type 2 diabetes mellitus without complication, with long-term current use of insulin ([facility]) TAKE 1 TABLET(500 MG) BY MOUTH [...] 3.125 MG tabletIndications: Coronary artery disease involving [place] coronary artery of [place] heart without angina pectoris TAKE 1 TABLET [...] microalbuminuria, with long-term current use of insulin ([facility]),Heart failure with reduced ejection fraction ([facility]) Take 1 tablet (10 mg total) by mouth daily. 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 ([facility]) 05/06/2022 Current mild episode of wandy r depressive disorder, unspecified whether recurrent 05/11/2021 Cerebral aneurysm, nonruptured ([facility]) 021 Saccular aneurysm ([facility]) 02/25/2021 Alzheimer disease 12/03/2020 ACS (acute coronary syndrome) ([facility]) 10/08/2020 Diabetes ([facility]) 10/08/2020 Eczema 10/08/2020 Tobacco use 10/08/2020 Coronary artery disease invo lving coronary bypass graft of [place] heart without angina pectoris 10/08/2020 Pulmonary emphysema, unspeci fied emphysema type ([facility]) 10/08/2020 Heart failure with reduced e jection fraction ([facility]) 10/08/2020 Anemia 09/23/2020 Atrial fibrillation ([facility]) 09/23/2020 Depression 09/23/2020 Essential hypertension 09/23/2020 Hyperkalemia 09/23/2020 Hyperlipidemia 09/23/2020 Hyponatremia 09/23/2020 Ischemic cardiomyopathy 09/23/2020 Leukocytosis 09/23/2020 Pulmonary nodules 09/23/2020 Atherosclerosis of coronary artery 09/06/2020 Overview (10/08/2020): Added automatically from request for surgery [id number] Smokers' cough ([facility]) 07/08/2020 BMI 27.0-27.9,adult 06/04/2019 SANJU on CPAP 06/04/2019 Cigarette nicotine dependence without complicati on 06/04/2019 Insomnia 09/28/2018 Type 2 diabetes mellitus wit hout complication, with long-term current use of insulin ([facility]) 09/28/2018 Hyperlipidemia associated wi th type 2 diabetes mellitus ([facility]) 09/28/2018 Anxiety 09/28/2018 Gastroesophageal reflux disease without esophagi tis 09/28/2018 Coronary artery disease invo lving [place] coronary artery of [place] heart without angina pectoris 08/16/2017 History of coronary artery stent placement 08/16 Immunizations Immunization Administration Dates Next Due Fluzone High Dose [...] would like to quit , Provider to funeral pre arrangement counselor Alcohol Use Standard Drinks/Week Comments No 0 (1 standard drink = 0.6 oz pur e alcohol) AUDIT-C Answer Date Recorded Frequency of Alcohol Consumption Never 09/28/2018 Average Number of Drinks Not on file 05/30/2 019 Frequency of Binge Drinking Not on [...] Comments Blood Pressure 128/66 06/11/2022 9:22 AM DONOR SERVICES TECHNICIAN Pulse 64 06/11/2022 9:22 AM DONOR SERVICES TECHNICIAN Temperature 36.2 C (97.2 F) 06/11/2022 9:22 AM DONOR SERVICES TECHNICIAN Respiratory Rate 16 06/11/2022 9:22 AM DONOR SERVICES TECHNICIAN Oxygen Saturation 93% 06/11/2022 9:22 AM DONOR SERVICES TECHNICIAN Inhaled Oxygen Concentration - - Weight 83.7 kg (184 lb 8 oz) 06/11/2022 9:22 AM DONOR SERVICES TECHNICIAN Height 175.9 cm (5' 9.25) 06/11/2022 9:22 AM CS T Body Mass Index 27.05 06/11/2022 9:22 AM DONOR SERVICES TECHNICIAN Plan of Treatment Health Maintenance Due Date Last Done Comments ASCVD Statin 1948 Kidney Health Evaluation 1948 Zoster Vaccines (1 of 2) 1998 Annual Medicare Wellness Visit 2013 Diabetes: Retinopathy Eye Exam 11/11/2022 11/11/2020 Hemoglobin A1C 12/09/2022 06/11/2022, 01/31, 11/24/2021, Additional history exists ASCVD LDL 2023 2022, 03/03, 04/01/2020, Additional history exists Lipid Panel 2023 2022, 03/03, 09/02/2020, Additional history exists RSV Immunization or 60+ Years (1 - 1-dose 75+ series) 2023 COVID-19 Vaccine (3 - season) 2024 07/25/2020, 06/28/2020 PHQ-2 (Physician [place]) 05/02/2024 DTaP, Tdap and Td Vaccines (2 - Td or Tdap) 06/04/2029 06/04/2019 Colorectal Cancer Screening Colonoscopy (10 Years) Discontinued 09/05/2015 Hepatitis C Completed 04/01/2020 Pneumococcal Vaccine: 50+ Years Completed 05/11/2021, 06/04/2019 Meningococcal B Vaccine [...] microalbuminuria, with long-term current use of insulin LIPID PANEL Routine 2022 11:12 AM DONOR SERVICES TECHNICIAN Type 2 diabetes mellitus without complication, with long-term current use of insulin Hyperlipidemia, unspecified hyperlipidemia type DIABETIC RETINOPATHY EXAM (NEGATIVE)(SCAN ORDER) Routine 11/11/2020 HEPATITIS C ANTIBODY 04/01/2020 1:43 PM DONOR SERVICES TECHNICIAN COLONOSCOPY GENERIC (SCAN ORDER) Routine 09/05/2015 from Last 3 Months or Most Recently Relevant to Health Maintenance Results * A1C (BACK OFFICE) (06/11/2022) HGB A1C 7.3 % [facility] 06/11/2022 us Sergey Helms DO LABORATORY Final Re sult [facility] [address] [place] [address], * LIPID PANEL (2022 11:12 AM DONOR SERVICES TECHNICIAN) CHOLESTEROL 118 <200 MG/DL 2022 10:50 PM DONOR SERVICES TECHNICIAN [facility] BRIGHT [place] TRIGLYCERIDES 135 <150 MG/DL 2022 10:[address] [facility] HDL 42 >40 MG/DL 2022 10:50 PM DONOR SERVICES TECHNICIAN [facility] LDL-C 49 <100 MG/DL 2022 10:50 PM DONOR SERVICES TECHNICIAN [facility] VLDL CALCULATION 27 5 - 28 MG/DL 2022 10:50 PM DONOR SERVICES TECHNICIAN [facility] CHOL/HDL RATIO 2.8 0.0 - 4.0 2022 10:50 PM DONOR SERVICES TECHNICIAN [facility] LDL/HDL 1.2 0.41 - 2.13 2022 10:50 PM DONOR SERVICES TECHNICIAN [facility] NON HDL CHOLESTEROL 76 <140 MG/DL 2022 10:50 PM DONOR SERVICES TECHNICIAN [facility] 2022 11:1 2 AM DONOR SERVICES TECHNICIAN us Sergey Helms DO LABORATORY Final Re sult [facility] [address] [place] [address], * DIABETIC RETINOPATHY EXAM (NEGATIVE)(SCAN) (11/11/2020) us Documents Scanned SCANNING Final Result Performing Organization Address City/[facility] Co de Phone Number [facility] * HEPATITIS C ANTIBODY (04/01/2020 1:43 PM DONOR SERVICES TECHNICIAN) HEPATITIS C AB <0.1 0.0 - 0.9 s/co ratio [facility] 1 Comment: Negative: < 0.8 Indeterminate: 0.8 - 0.9 Positive: > 0.9 The CDC recommends that a positive HCV antibody result be followed up with a HCV Nucleic Acid Amplification test (012218). 04/01/2020 1:43 PM DONOR SERVICES TECHNICIAN 04/01/2020 Narrative [facility] - 04/02/2020 12:09 PM DONOR SERVICES TECHNICIAN Performed at: [facility] [id number] C T Tech: Luis Childers PhD, Phone: [phone] us Sergey Helms DO LABORATORY Final Re sult [facility] [address] [place] [address] [facility] 1 * COLONOSCOPY (09/05/2015) us Documents Scanned SCANNING Edited Result - Final [facility] from Last 3 Months or Most Recently Relevant to Health Maintenance Insurance Care Teams Spinning Bath Person Relationship Specialty Start Date End Date Sergey Helms DO [address] [place] [address] PCP - General FAMILY PRACTICE 09/28/18
--- OUTSIDE RECORDS SUMMARY | 2024-12-28 15:02 | XMS_ITS | Encounter Summary ---
Author Organization [facility] Address [address] [place] [address] Care Team Providers Care Racecourse Barrier Attendant Name Role Phone Sergey Helms Ruben CASTELLANO Primary Care Provider + Encounter Details Date Type Department Care Team (Late st Contact Info) Description 10/19/2021 [employer] Message Enc [facility] Medical Group [facility] - [address] [place] [address] Vishal Infante MD [address] [place] [address] Blood test Social History Tobacco Use Types Packs/Day Years Used Date Smoking Tobacco: Every Day Cigarettes 0.5 54 Smokeless Tobacco: Never Comments:Patient would like to quit , Provider to corporate travel counselor Alcohol Use Standard Drinks/Week Comments No [...] Total Score: 0 05/11/19 22 1:55 PM SEWING TECHNIQUES DEMONSTRATOR documented as of this encounter Care Teams Racecourse Barrier Attendant Relationship Specialty Start Date End Date Sergey Helms DO [address] [place] [address] PCP - General FAMILY PRACTICE 09/28/18 documented as of this encounter
--- OUTSIDE RECORDS SUMMARY | 2024-12-28 15:02 | XMS_ITS | Encounter Summary ---
Author Organization [facility] Address [address] [place] [address] Care Team Providers Care Sales Enablement Specialist Name Role Phone Sergey Helms DO Primary Care Provider + Encounter Details Date Type Department Care Team (Late st Contact Info) Description 10/27/2022 [employer] Message Enc [facility] Medical Group - [facility] [address] [place], [place] [address] [facility], [facility] Provider Air Quality Message Social History Tobacco Use Types Packs/Day Years Used Date Smoking Tobacco: Every Day Cigarettes 0.5 54 Smokeless Tobacco: Never Comments:Patient would like to quit , Provider to extension course counselor Alcohol Use Standard Drinks/Week Comments No [...] Noted Time PHQ-9 Depression Total Score: 12 11/24/ 022 9:55 AM CDT documented as of this encounter Care Teams Sales Enablement Specialist Relationship Specialty Start Date End Date Sergey Helms DO [address] [place] [address] PCP - General FAMILY PRACTICE 09/28/18 documented as of this encounter
--- OUTSIDE RECORDS SUMMARY | 2024-12-28 15:02 | XMS_ITS | Encounter Summary ---
Author Organization [facility] Healthcare Address [address] [place] [address] Care Team Providers Care Taping Foreman Name Role Phone Federico Watt MD Primary Care Provider [phone] Sergey Helms DO Primary Care Provide r Huang Mercado MD Unavailable [phone] Lesly Johnson NP Unavailable [phone] Vishal Infante MD Unavailable [phone] Federico Watt MD Primary Care Provider [phone] Encounter Details Date Type Department Care Team (Late st Contact Info) Description 08/18/2017 Orders Only [facility] Health Information Management [address] [place] [address] Scanning, Provider Social History Tobacco Use Types Packs/Day Years Used Date Smoking Tobacco: Every Day Cigarettes Smokeless Tobacco: Never Comments:Smoking History Pac ks/day: 1 Packs Alcohol Use Standard Drinks/Week Comments Yes 0 (1 standard drink = 0.6 oz pur e alcohol) Sex and Gender Information Value Date Recorded Sex Assigned at Not on file 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 Gender Identity Not on file Sexual Orientation Not on file documented as of this encounter Plan of Treatment Not on file documented as of this encounter Procedures Procedure Name Priority Date/Time Associated Diagnosis Comments SCAN - RADIOLOGY/IMAGING 08/18/2017 4:21 AM CDT documented in this encounter Results * SCAN - RADIOLOGY/IMAGING (08/18/2017 4:21 AM CDT) Anatomical Region Laterality Modality Other us Provider Scanning Final Result documented in this encounter Visit Diagnoses Not on filedocumented in this encounter Care Teams Taping Foreman Relationship Specialty Start Date End Date Federico Watt MD [address] [place] [address] PCP - General 06/21/14 08/18/20 Sergey Helms DO [address] [place] [address] PCP - General Family Medicine 08/19/20 08/25/22 Federico Watt MD [address] [address] [place] [address] PCP - General Internal Medicine 08/26/22 Huang Mercado MD [address] [place] [address] Surgeon Cardiothoracic Surgery 09/23/20 Lesly Johnson NP [address] [place] [address] Nurse Practitioner Cardiovascular Disease 09/23/20 Vishal Infante MD [address] [address] Referring Physician Neurology 02/24/21 documented as of this encounter
--- OUTSIDE RECORDS SUMMARY | 2024-12-28 15:02 | XMS_ITS | Encounter Summary ---
Author Organization [facility] Address [address] [place] [address] Care Team Providers Care Tile Grinder Name Role Phone Sergey Helms DO Primary Care Provider + Encounter Details Date Type Department Care Team (Late st Contact Info) Description 03/09/2021 [employer] Message Enc [facility] Medical Group Family & Internal Medicine [facility] [address] [place] [address] Sergey Helms DO [address] [place], [place] [phone] Medication Questions Social History Tobacco Use Types Packs/Day Years Used Date Smoking Tobacco: Every Day Cigarettes 0.5 54 Smokeless Tobacco: Never Comments:Patient would like to quit , Provider to pre parole counseling aide Alcohol Use Standard Drinks/Week Comments No 0 [...] high; we made adjustments at last OV. 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
--- OUTSIDE RECORDS SUMMARY | 2024-12-28 15:02 | XMS_ITS | Encounter Summary ---
Author Organization [facility] Healthcare Address [address] [place] [address] Care Team Providers Care Concrete Block Mason Name Role Phone Federico Watt MD Primary Care Provider [phone] Sergey Helms DO Primary Care Provide r Huang Mercado MD Unavailable [phone] Lesly Johnson NP Unavailable [phone] Vishal Infante MD Unavailable [phone] Federico Watt MD Primary Care Provider [phone] Encounter Details Date Type Department Care Team (Late st Contact Info) Description 07/09/2017 Orders Only [facility] Health Information Management [address] [place] [address] Scanning, Provider Social History Tobacco Use Types Packs/Day Years Used Date Smoking Tobacco: Never Assessed Comments:Smoking History Pac ks/day: 1 Packs Alcohol Use Standard Drinks/Week Comments Yes 0 (1 standard drink = 0.6 oz pur e alcohol) Sex and Gender Information Value Date Recorded Sex Assigned at Not on file 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 Gender Identity Not on file Sexual Orientation Not on file documented as of this encounter Plan of Treatment Not on file documented as of this encounter Procedures Procedure Name Priority Date/Time Associated Diagnosis Comments SCAN - RADIOLOGY/IMAGING 07/09/2017 documented in this encounter Results * SCAN - RADIOLOGY/IMAGING (07/09/2017) Anatomical Region Laterality Modality Other us Provider Scanning Final Result documented in this encounter Visit Diagnoses Not on filedocumented in this encounter Care Teams Concrete Block Mason Relationship Specialty Start Date End Date Federico Watt MD [address] [place] [address] PCP - General 06/21/14 08/18/20 Sergey Helms DO [address] [place] [address] PCP - General Family Medicine 08/19/20 08/25/22 Federico Watt MD [address] [address] [place] [address] PCP - General Internal Medicine 08/26/22 Huang Mercado MD [address] [place] [address] Surgeon Cardiothoracic Surgery 09/23/20 Lesly Johnson NP [address] [address] Nurse Practitioner Cardiovascular Disease 09/23/20 Vishal Infante MD [address] [address] Referring Physician Neurology 02/24/21 documented as of this encounter
--- OUTSIDE RECORDS SUMMARY | 2024-12-28 15:02 | XMS_ITS | Clinical Summary ---
Author Organization [facility] [address] [facility] [address] Address [address] [facility] [address] [place] [address] Care Team Providers Care Hydroblaster Name Role Phone Huang Mercado MD Unavailable [phone] Lesly Johnson NP Unavailable [phone] Vishal Infante MD Unavailable [phone] Federico Watt MD Primary Care Provider [phone] Allergies No known active allergies Medications atorvastatin [...] CABG 11/25/2020 Ischemic cardiomyopathy 09/23/2020 Atrial fibrillation 09/23/2020 Essential hypertension 09/23/2020 Hyperlipidemia 09/23/2020 Depression 09/23/2020 Pulmonary nodules 09/23/2020 Hyponatremia 09/23/2020 Hyperkalemia 09/23/2020 Anemia 09/23/2020 Leukocytosis 09/23/2020 Coronary artery disease invo lving [place] heart without angina pectoris 09/06/2020 Overview (09/09/2020): Added automatically from request for surgery [id number] CAD, multiple vessel 08/16/2017 History of coronary artery stent placement 08/16 Surgical History Surgery Date Site/Laterality Comments 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 More than three times a week 09/09/2020 How often do you get togethe r with friends or relatives? More than three times a week 09/09/2020 How often do you attend chur or orthodox services? More than 4 times per year [...] place to sleep or slept in a fdc (including now)? 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 MEDICARE ADVANTAGE [facility] REF [employer] MEDICARE ADVANTAGE [place] [facility] [address] Advance Directives For more information, please contact: [phone] * Full Code (Latest Code Status on File) Date Activated Date Inactivated Comments 07/06/2021 9:02 AM 07/06/2021 1:51 PM * Full Code Date Activated Date Inactivated Comments 09/06/2020 6:08 AM 09/24/2020 2:54 AM Care Teams Hydroblaster Relationship Specialty Start Date End Date Federico Watt MD [address] [facility] [address] [place] [address] PCP - General Internal Medicine 08/26/22 Huang Mercado MD Surgeon Cardiothoracic Surgery 09/23/20 Lesly Johnson NP [address] [address] Nurse Practitioner Cardiovascular Disease 09/23/20 Vishal Infante MD [address] [address] Referring Physician Neurology 02/24/21
--- OUTSIDE RECORDS SUMMARY | 2024-12-28 15:02 | XMS_ITS | Encounter Summary ---
Author Organization [facility] Address [address] [place] [address] Care Team Providers Care Tax Compliance Officer Name Role Phone Scooter Sergey Miranda DO Primary Care Provider + Encounter Details Date Type Department Care Team (Late st Contact Info) Description 11/04/2021 [employer] Message Buddy [employer]inks [facility] Medical Group Family & Internal Medicine [address] [address] [employer] L[employer]hart, [facility] Provider Appointment Social History Tobacco Use Types Packs/Day Years Used Date Smoking Tobacco: Every Day Cigarettes 0.5 54 Smokeless Tobacco: Never Comments:Patient would like to quit , Provider to pediatric genetic counselor Alcohol Use Standard Drinks/Week Comments No [...] AM CDT documented as of this encounter Functional Status * Calculated C-SSRS Risk Score (Lifetime/Recent) Answer Date of Assessment Author Status No Risk Indicated 11/04/2021 11:13 AM CDT Marina Skinner sa, MA Active * [place] Suicide Severity Rating Scale (Screener/Recent Self-Report) Question Answer Date of Assessment Author Status 1. Wish to be (Past 1 Month) No 11/04/2021 11:13 AM CDT Tania Skinner MA Act alejandra 2. Non-Specific Active Suicidal Thoughts (Past 1 Month) No 11/04/2021 11:13 AM CDT Tania Skinner MA Act alejandra 6. Suicidal Behavior (Lifetime) No 11/04/2021 11:13 AM CDT Tania Skinner MA Act alejandra documented as of this encounter Plan of Treatment Not on file documented as of this encounter Visit Diagnoses Not on filedocumented in this encounter Additional Health Concerns Assessment Noted Time PHQ-9 Depression Total Score: 16 022 11:11 AM CDT documented as of this encounter Care Teams Tax Compliance Officer Relationship Specialty Start Date End Date Sergey Helms DO [address] [place] [address] PCP - General FAMILY PRACTICE 09/28/18 documented as of this encounter
--- OUTSIDE RECORDS SUMMARY | 2024-12-28 15:02 | XMS_ITS | Encounter Summary ---
Author Organization [facility] Address [address] [place] [address] Care Team Providers Care Garage Door Hanger Name Role Phone Sergey Helms Ruben CASTELLANO Primary Care Provider + Encounter Details Date Type Department Care Team (Late st Contact Info) Description 10/07/2021 Vita Soundhart Message Enc [facility] - [address] [place] [address] Vishal Infante MD [address] [place] [id number] Blood test Social History Tobacco Use Types [...] Total Score: 0 05/11/19 22 1:55 PM WIRE SAWYER documented as of this encounter Care Teams Garage Door Hanger Relationship Specialty Start Date End Date Sergey Helms DO [address] [place] [id number] PCP - General FAMILY PRACTICE 09/28/18 documented as of this encounter
--- OUTSIDE RECORDS SUMMARY | 2024-12-28 15:02 | XMS_ITS | Clinical Summary ---
Author Organization [facility] Address [address] [address] Care Team Providers Care Loft Patternmaker Name Role Phone Federico Watt MD Primary Care Provider [phone] Source Comments [facility],non-owned Affiliates and Associated Physician Practices is amultiple site organization consisting of ambulatory clinics and hospital sitesin [place], [place], [place] and [place]. This disclosure is being madepursuant to the Care Everywhere program and may not contain all information available regarding this patient. 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 Gender Identity Not on file Sexual Orientation [...] (2 - 2023-2 5 season) 2024 06/28/2020 DEPRESSION SCREENING 05/02/2024 MEDICARE AWV CALENDAR YEAR 2024 INFLUENZA VACCINE (#1) 2024 HEPATITIS B VACCINE Aged Out No longe r eligible based on patient's age to complete this topic HIB VACCINE Aged Out No longer eligi ble based on patient's age to complete this topic HPV VACCINE Aged Out No longer eligi ble based on patient's age to complete this topic MENINGOCOCCAL (Group B) VACC INE SHARED DECISION-MAKING Aged Out No longer eligibl e based on patient's age to complete this topic MENINGOCOCCAL GROUPS A/C/Y/W VACCINE Aged Out No longer eligible b ased on patient's age to complete this topic Insurance MANAGED MEDICARE ADV * Guarantor: LOS BARLOW Account Type Relation to Patient Date of Phone Billing Address Personal/Family [address] [place] [phone] SELF PAY NO INSURANCE Member Subscriber Plan / Payer (Ef fective for All Dates) Name:Los Barlow Member ID:Not on file Relation to Subscriber:Not on file Name:LOS BARLOW Subscriber ID:Not on file (Home) Address: [address] [place] [phone] Payer ID:Not on file Group ID:Not on file Type:Self Pay Address: [facility] MANAGED MEDICARE ADV * Guarantor: LOS BARLOW Account Type Relation to Patient Date of Phone Billing Address Personal/Family [address] [place] [address] SELF PAY NO INSURANCE Member Subscriber Plan / Payer (Ef fective for All Dates) Name:Los Barlow Member ID:Not on file Relation to Subscriber:Not on file Name:LOS BARLOW Subscriber ID:Not on file (Home) Address: [address] [place] [phone] Payer ID:Not on file Group ID:Not on file Type:Self Pay Address: [facility] MANAGED MEDICARE ADV * Guarantor: LOS BARLOW Account Type Relation to Patient Date of Phone Billing Address Personal/Family [address] [place] [phone] SELF PAY NO INSURANCE Member Subscriber Plan / Payer (Ef fective for All Dates) Name:Los Barlow Member ID:Not on file Relation to Subscriber:Not on file Name:LOS BARLOW Subscriber ID:Not on file (Home) Address: [address] [place] [phone] Payer ID:Not on file Group ID:Not on file Type:Self Pay Address: [facility] MANAGED MEDICARE ADV Care Teams Loft Patternmaker Relationship Specialty Start Date End Date Federico Watt MD [address] [place] [address] PCP - General 01/08/22
--- OUTSIDE RECORDS SUMMARY | 2024-12-28 15:02 | XMS_ITS | Encounter Summary ---
Author Organization [facility] Address [address] [place] [address] Care Team Providers Care Mainspring Reverse Winder Name Role Phone Sergey Helms Ruben CASTELLANO Primary Care Provider + Encounter Details Date Type Department Care Team (Late st Contact Info) Description 10/08/2021 Openbravohart Message Enc [facility] - [address] [place] [address] Vishal Infante MD [address] [place] [address] Blood test Social History Tobacco Use Types Packs/Day Years Used Date Smoking Tobacco: Every Day Cigarettes 0.5 54 Smokeless Tobacco: Never Comments:Patient would like to quit , Provider to debt management counselor Alcohol Use Standard Drinks/Week Comments No [...] Total Score: 0 05/11/19 22 1:55 PM ADULT REMEDIAL EDUCATION INSTRUCTOR documented as of this encounter Care Teams Mainspring Reverse Winder Relationship Specialty Start Date End Date Sergey Helms DO [address] [place] [id number] PCP - General FAMILY PRACTICE 09/28/18 documented as of this encounter
== END 2024-12-28 14:57 | disposition home or self-care (01) ==
PROVIDERS: PCP Internal Medicine; Visit Provider Internal Medicine
DX: S06.9XAA Unspecified intracranial injury with loss of consciousness status unknown, initial encounter (principal)
CPT/HCPCS: 70496; Q9967